=== PATIENT | female | born 1995 | race Hispanic/Latino ===

== ENCOUNTER 2020-11-04 09:01 | Emergency (ER) | payer OTHER, SELFPAY ==
[2020-11-04 09:34] VITALS: BP 116/76; PULSE 78; RESP 20; TEMP 36.6; O2SAT 99
--- NOTE | 2020-11-04 09:56 | ED.URI ---
HPI - URI/Sore Throat General Chief Complaint: Upper Respiratory Infection Stated Complaint: Headache,sore throat,fever,ear pain Time Seen by Provider: 11/04/20 09:55 Source: patient Mode of arrival: ambulatory Limitations: no limitations History of Present Illness HPI Narrative: Aleyda Gonzales is a 25 yo female with no prior medical history who [facility] with a fever since Saturday night, sore throat and ear congestion since Saturday, in general runny nose scratchy throat just not feeling well for the last 3 days. Has had a headache or ear pain that she rates as a 9 out of 10, has been using Tylenol and aspirin to try and control pain, fever Related Data Allergies Allergy/AdvReac Type Severity Reaction Status Date / Time No Known Allergies Allergy Verified 04/20/18 13:22 Review of Systems Review of Systems: Narrative: CONSTITUTIONAL: Denies fever, chills, sweats. EYES: Denies visual changes, redness, discharge. ENT: Has rhinorrhea, has congestion, has sore throat, bilateral otalgia. CARDIOVASCULAR: Denies chest pain, palpitations, edema. RESPIRATORY: Denies dyspnea, wheezing, mild cough GASTROINTESTINAL: Denies abdominal pain, nausea, vomiting, diarrhea. GENITOURINARY: Denies dysuria, hematuria, abnormal discharge SKIN: Denies rash or itching. NEUROLOGIC: Denies numbness, or focal weakness. PSYCHIATRIC: Denies anxiety or depression. PMFSH Past Medical History Medical History No acute medical problems Family History Family History (Updated 11/04/20 @ 10:06 by Kelly Dee CNP) Mother High cholesterol Social History Social History (Updated 11/04/20 @ 10:06 by Kelly Dee CNP) Smoking status: Never smoker Alcohol intake: current Gender identity (if verbalized by the patient): Female Comments At time of signature, I agree with nursing past medical, surgical, social and family history. There is no relevant family history pertinent to the presenting complaint. Exam Narrative: Exam Narrative: GENERAL: This is a well-nourished, well-developed patient, in moderate distress. Appears tired HEAD: normocephalic, atraumatic. EYES: Sclera clear/white. Vision is grossly intact. EARS: External ears normal, auditory canals erythema and without drainage, TMs normal without perforation. Hearing grossly intact. NOSE: External nose normal with nasal discharge, nares with redness, has rhinorrhea. THROAT: Mucous membranes moist, posterior pharynx erythema NECK: Neck supple, non-tender CARDIOVASCULAR: Regular rate and rhythm without murmurs, gallops, or rubs. RESPIRATORY: Clear to auscultation. Breath sounds equal bilaterally. No wheezes, rales, or rhonchi. GASTROINTESTINAL: Abdomen soft, non-tender, SKIN: warm, intact with no suspicious lesions or rash, good texture and turgor. NEURO: awake, alert, and oriented to person, place and time. There were no obvious focal neurologic abnormalities. Steady gait EXTREMITIES: Normal range of motion. BACK: Nontender without deformity Course Course Emergency Course: Patient has had symptoms since Saturday and fever started on Saturday night states that nothing is improved she has taken allergy medication and Tylenol or aspirin with improvement Throat swab was negative Strep swab was negative Is a longevity of symptoms and very symptoms, started on Z-Rhett, prednisone, codeine cough syrup, 600 mg ibuprofen Vital Signs Vital signs: Vital Signs Temperature 98 F 11/04/20 09:34 Pulse Rate 78 11/04/20 09:34 Respiratory Rate 20 11/04/20 09:34 Blood Pressure 116/76 11/04/20 09:34 Pulse Oximetry 99 11/04/20 09:34 Temperature 98 F 11/04/20 09:34 Pulse Rate 78 11/04/20 09:34 Respiratory Rate 20 11/04/20 09:34 Blood Pressure 116/76 11/04/20 09:34 Pulse Oximetry 99 11/04/20 09:34 MDM - URI/Sore Throat Differential Diagnosis Differential diagnosis: Likely otitis media, pharyngiti
== END 2020-11-04 10:22 | disposition home or self-care (01) ==
PROVIDERS: Emergency Provider Nurse Practitioner; PCP Family Medicine
DX: J02.9 Acute pharyngitis, unspecified (principal); H66.003 Acute suppurative otitis media without spontaneous rupture of ear drum, bilateral; R50.81 Fever presenting with conditions classified elsewhere
CPT/HCPCS: 87081; 87804; 87880; 99213; G0463

== ENCOUNTER 2021-04-20 17:45 | Emergency (ER) | payer OTHER, SELFPAY ==
[2021-04-20 17:55] VITALS: BP 122/73; PULSE 87; RESP 16; TEMP 36.3; O2SAT 100
--- NOTE | 2021-04-20 18:12 | ED.SKABFB ---
HPI - Skin/Abscess/Foreign Bdy General Chief complaint: Skin/Abscess/Foreign Body Stated complaint: rash Source: patient and RN notes reviewed Limitations: no limitations History of Present Illness HPI narrative: The patient, previously mostly healthy on minimal medications, presents with skin eruption. Patient states she has a shorter 1 day history of pink, itchy eruption that began on her face and now also involves her proximal extremities. Symptoms are mild, worse with scratching, unrelieved OTC Benadryl; no fever, URI?sinusitis, cough, wheeze, oral involvement. No new oral medications; she had a recent refill of her Depo control. Related Data Allergies Allergy/AdvReac Type Severity Reaction Status Date / Time No Known Allergies Allergy Verified 04/20/18 13:22 Review of Systems Review of Systems: General/Constitutional: No weight loss,fever Eyes: N0: Redness,discharge Ears/Nose/Throat: No: Epistaxis,ear discharge Respiratory: Denies: Hemoptysis Gastrointestinal: No Vomiting, Bleeding-rectal Skin: No Lumps, REPORTS eruption Neurologic: No Focal Weakness,Sz Hematologic: Denies: Petechiae/Purpura Psychiatric: No: Suicida ideationl All Other Systems: Reviewed and Negative PMFSH Past Medical History Medical History No acute medical problems Family History Family History (Updated 11/04/20 @ 10:06 by Kelly Dee CNP) Mother High cholesterol Social History Social History (Updated 11/04/20 @ 10:06 by Kelly Dee CNP) Smoking status: Never smoker Alcohol intake: current Gender identity (if verbalized by the patient): Female Comments At time of signature, agree with nursing past medical, surgical, social and family history. There is no relevant family history pertinent to the presenting complaint Exam Narrative: General Appearance: Well nourished Head: Normocephalic Skin: Warm, Dry ; scattered blanching polymorphic regular eruption on hairline and proximal extremities Eye: PERRLA, Conjunctiva clear Ear: External ear normal Nose: Normal nose, Nare clear Mouth/Throat: Normal appearing Neck Exam: Supple Respiratory: Airway patent, No respiratory distress, CTA Musculoskeletal: Moves all extremities, Non tender Neurological: A&O x3 Psychiatric: Normal mood, Normal affect Course Vital Signs Vital signs: Vital Signs Temperature 97.3 F L 04/20/21 17:55 Pulse Rate 87 04/20/21 17:55 Respiratory Rate 16 04/20/21 17:55 Blood Pressure 122/73 04/20/21 17:55 Pulse Oximetry 100 04/20/21 17:55 Temperature 97.3 F L 04/20/21 17:55 Pulse Rate 87 04/20/21 17:55 Respiratory Rate 16 04/20/21 17:55 Blood Pressure 122/73 04/20/21 17:55 Pulse Oximetry 100 04/20/21 17:55 Discharge Plan Discharge Clinical Impression: Urticaria, Pruritic condition Patient Disposition: Home, Self-Care Condition: Stable Instructions: Urticaria (ED) Additional Instructions: You may use OTC preparations like nighttime Benadryl, hydrocortisone cream for future recurrence Stop all make-up, facial preps; if not improved try elimination diet Keep photo log of area; return to PMD if worsens or persists Prescriptions: New prednisone 20 mg tablet 60 mg PO DAILY Qty: 15 RF: 0 loratadine [Claritin] 10 mg tablet 10 mg PO DAILY PRN (Reason: allergy symptoms) Qty: 14 RF: 0 Follow-up/Referrals: UNKNOWN,DOCTOR [Primary Care Provider] -
== END 2021-04-20 18:27 | disposition home or self-care (01) ==
PROVIDERS: Emergency Provider Emergency Medicine
DX: L50.9 Urticaria, unspecified (principal); L29.9 Pruritus, unspecified
CPT/HCPCS: 99213; G0463

== ENCOUNTER 2022-08-17 08:15 | Emergency (ER) | payer OTHER, SELFPAY ==
--- NOTE | ~2022-08-17 | US_ITS ---
EXAMINATION: US venous doppler [facility] DATE: 08/17/2022 12:59 INDICATION: Lower limb pain and swelling TECHNIQUE: Grayscale ultrasound images without and with compression and Doppler ultrasound images of the bilateral lower extremity veins were obtained. COMPARISON: None. FINDINGS: The visualized portions of right common femoral vein, profunda (deep) femoral vein, femoral vein, pop liteal vein, posterior tibial veins, peroneal veins, gastrocnemius vein and greater saphenous vein ou tflow are patent. The visualized portions of left common femoral vein, profunda femoral vein, femoral vein, popliteal v ein, posterior tibial veins, peroneal veins, gastrocnemius vein and greater saphenous vein outflow ar e patent. IMPRESSION: 1. No deep venous thrombosis in either lower limb. Reviewed, dictated and finalized at location A. [employer]
[2022-08-17 08:28] VITALS: BP 126/84; PULSE 79; RESP 16; TEMP 36.9; O2SAT 100
--- NOTE | 2022-08-17 11:20 | ED.EXTPRO ---
HPI - Extremity Problem General Chief complaint: Extremity Problem,Nontraumatic Stated complaint: bilateral leg pain Time Seen by Provider: 08/17/22 11:18 History of Present Illness HPI Narrative: Patient is a 27-year-old female who presents ER with concerns for DVT. She is on control. She noticed some pain in her right foot after stepping on it a couple days ago. She is also been developing bruising to the left medial thigh. She endorses calf cramping bilaterally. No known trauma that could have caused the bruising. Denies fevers or chills or sweats. No hemoptysis. No pain with deep breath. Related Data Allergies Allergy/AdvReac Type Severity Reaction Status Date / Time No Known Allergies Allergy Verified 08/17/22 11:58 Review of Systems Review of Systems: All systems reviewed & are unremarkable except as noted in HPI and below Constitutional: Constitutional: Denies chills, Denies fatigue and Denies fever(s) ENT: Denies nasal congestion and Denies sore throat Cardiovascular: Cardiovascular: Denies chest pain, Denies rapid heart rate and Denies radiating jaw, neck or arm pain Respiratory: Respiratory: Denies cough and Denies dyspnea Musculoskeletal: Musculoskeletal: Denies arthralgias, Denies joint swelling and Reports muscle cramps (Calf cramping) Integumentary/Breasts: Comments: Bruising to the lower extremities. PMFSH Past Medical History Medical History (Updated 08/17/22 @ 13:43 by Varinder Cruz MD) Anxiety Family History Family History (Updated 11/04/20 @ 10:06 by Kelly Dee, WEIGHT REDUCTION SPECIALIST) Mother High cholesterol Social History Social History (Updated 11/04/20 @ 10:06 by Kelly Dee, WEIGHT REDUCTION SPECIALIST) Smoking status: Never smoker Alcohol intake: current Gender identity (if verbalized by the patient): Female Exam Narrative: GENERAL: Well-appearing, well-nourished, and in no acute distress. HEAD: Normocephalic, atraumatic. CHEST: Clear to auscultation. No respiratory distress. HEART: Regular rate and rhythm. Normal peripheral pulses. EXTREMITIES: Normal range of motion. No edema. SKIN: Warm, dry, no rash. Bruising to left medial thigh as well as multiple old healed bruises that are yellowed that are smaller than eraser. NEURO: Alert and oriented x3. PSYCH: Normal mood and affect. Course Course Emergency Course: Patient resting comfortably. Informed of results. No evidence of DVT. Patient given reassurance. Discharge home. Vital Signs Vital signs: Vital Signs Temperature 98.5 F 08/17/22 08:28 Pulse Rate 79 08/17/22 08:28 Respiratory Rate 16 08/17/22 08:28 Blood Pressure 126/84 08/17/22 08:28 Pulse Oximetry 100 08/17/22 08:28 Oxygen Delivery Room Air 08/17/22 08:28 Temperature 98.8 F 08/17/22 11:49 Pulse Rate 77 08/17/22 11:49 Respiratory Rate 18 08/17/22 11:49 Blood Pressure 126/84 08/17/22 08:28 Pulse Oximetry 100 08/17/22 11:49 Oxygen Delivery Room Air 08/17/22 11:49 MDM - Extremity (Nontraumatic) Imaging Data Radiologist's impression: ITS Impressions Venous Doppler Study 08/17/22 13:02 IMPRESSION: 1. No deep venous thrombosis in either lower limb. Discharge Plan Discharge Clinical Impression: Superficial bruising of thigh Patient Disposition: Home, Self-Care Condition: Stable Instructions: Contusion in Adults (ED) Additional Instructions: Return to the ER if you have chest pain or shortness of breath, you cannot keep down food or water, you lose consciousness, you have additional concerns. The ultrasound of your legs was negative for DVT. Prescriptions: No Action prednisone 20 mg tablet 60 mg PO DAILY Qty: 15 0RF loratadine [Claritin] 10 mg tablet 10 mg PO DAILY PRN (Reason: allergy symptoms) Qty: 14 0RF Follow-up/Referrals: Antonino,MD Maldonado [Primary Care Provider] - 1 Week
[2022-08-17 11:49] VITALS: PULSE 77; RESP 18; TEMP 37.1; O2SAT 100
== END 2022-08-17 13:50 | disposition home or self-care (01) ==
PROVIDERS: Emergency Provider Emergency Medicine; PCP Family Medicine
DX: M79.81 Nontraumatic hematoma of soft tissue (principal); Z79.3 Long term (current) use of hormonal contraceptives
CPT/HCPCS: 93970; 99284

== ENCOUNTER 2024-03-31 17:49 | Emergency (ER) | payer OTHER, SELFPAY ==
--- NOTE | 2024-03-31 17:54 | ED.NAVMDI ---
HPI - Nausea/Vomiting/Diarrhea General Chief complaint: Dizziness Stated complaint: Dizziness/ Vomiting Time Seen by Provider: 03/31/24 17:50 Source: patient Mode of arrival: ambulatory Limitations: no limitations History of Present Illness HPI Narrative: Patient is a 28-year-old female who presents with episodes of face flushing, sweating, rapid heart rate and feeling lightheaded. Patient states initially started 2 months ago but has worsened since watching has been being removed by [employer]. Patient states she wakes up every morning at the same time and vomits. Patient states she feels like her mind is racing even when she is sleeping. Does report nightmares. Denies any thoughts of harming herself or others. Denies any chance she is . Related Data Allergies Allergy/AdvReac Type Severity Reaction Status Date / Time No Known Allergies Allergy Verified 03/31/24 18:10 Review of Systems Review of Systems: All systems reviewed & are unremarkable except as noted in HPI and below Constitutional: Constitutional: Denies body ache(s), Denies chills, Denies fatigue, Denies fever(s), Denies headache(s), Denies malaise and Denies weakness Eyes: Eyes: Denies blurry vision, Denies irritation and Denies loss of vision ENT: Denies otalgia, Denies headache(s), Denies nasal discharge, Denies sinus pain and Denies sore throat Cardiovascular: Cardiovascular: Denies chest pain, Denies irregular heart rhythm and Reports dyspnea Respiratory: Respiratory: Denies dyspnea Gastrointestinal: Gastrointestinal: Denies abdominal pain, Denies melena, Denies hematochezia, Denies diarrhea, Reports nausea and Reports vomiting Musculoskeletal: Musculoskeletal: Denies back pain, Denies myalgias and Denies arthralgias Integumentary/Breasts: Skin/Breast: Denies pruritus and Denies rash Neurologic: Reports dizziness, Denies headache(s), Denies loss of vision and Denies weakness Psychiatric: Psychiatric: Reports no additional psychiatric complaints Endocrine: Endocrine: Denies fatigue PMFSH Past Medical History Medical History Anxiety Family History Family History Mother High cholesterol Social History Social History Smoking status: Never smoker Alcohol intake: current Gender identity (if verbalized by the patient): Female Comments At time of signature, agree with nursing past medical, surgical, social and family history. There is no relevant family history pertinent to the presenting complaint. Exam Const: General: cooperative, healthy appearing, comfortable, no acute distress and well nourished Nutritional Appearance: well nourished Orientation/consciousness: patient oriented x3 Limitations: no limitations HENMT: Head: normal to inspection, normocephalic and atraumatic Ears: hearing grossly normal bilaterally and external ears normal Face/Nose/Sinus: Normal external nose present, normal facial exam and face symmetric Face and sinus: normal facial exam and face symmetric Mouth: Yes lip normal Eyes: General: appearance normal, both eyes and all related structures Alignment and Position: alignment normal and position normal Periorbital: periorbital findings normal Eyelids: eyelids normal Pupils: Equal, round and reactive pupils present EOM: EOMs intact bilaterally Neck: Neck: normal visual inspection, full ROM and supple Chest: Chest palpation & inspection: normal inspection of the chest Resp: Effort & Inspection: normal respiratory effort and able to speak in complete sentences Auscultation: clear to auscultation bilaterally Cardio: Rate: regular rate Rhythm: regular rhythm Heart sounds: S1 normal heart sound present and S2 normal heart sound present GI: Inspection: normal to inspection Skin: General skin exam: normal color and no rashes or
[2024-03-31 17:58] VITALS: BP 114/83; PULSE 70; RESP 16; TEMP 36.6; O2SAT 99
[2024-03-31 18:10] LABS: Glucose Point of Care 109 mg/dl (65-105)
== END 2024-03-31 19:01 | disposition home or self-care (01) ==
PROVIDERS: Emergency Provider Nurse Practitioner Family; PCP Family Medicine
DX: F41.9 Anxiety disorder, unspecified (principal); F43.11 Post-traumatic stress disorder, acute; X58.XXXA Exposure to other specified factors, initial encounter
CPT/HCPCS: 82948; 99213; G0463

== ENCOUNTER 2024-05-20 17:10 | Emergency (ER) | payer OTHER, SELFPAY ==
[2024-05-20 17:20] VITALS: BP 109/65; PULSE 75; RESP 16; TEMP 36.7; O2SAT 100
--- NOTE | 2024-05-20 17:25 | ED.FEMALEGU ---
HPI - Female Genitourinary General Chief complaint: Urogenital-Female Stated complaint: Possible UTI Time Seen by Provider: 05/20/24 17:28 Source: patient and RN notes reviewed Mode of arrival: ambulatory Limitations: no limitations History of Present Illness HPI Narrative: 29-year-old female presents with concern for vaginal irritation, urine frequency that started yesterday. Reports today she started having burning with urination. She reports some small white vaginal discharge. She reports that irritation is all the time, not just when urinating. She reports this started after she had intercourse. She would like to be tested for STDs MD elicited complaint: UTI Related Data Allergies Allergy/AdvReac Type Severity Reaction Status Date / Time No Known Allergies Allergy Verified 05/20/24 17:24 Review of Systems Review of Systems: CONSTITUTIONAL: Denies malaise, chills, sweats, or fever. CARDIOVASCULAR: Denies chest pain, palpitations, or edema. RESPIRATORY: Denies cough or dyspnea. GASTROINTESTINAL: Denies abdominal pain, nausea, vomiting, diarrhea GENITOURINARY: Reports dysuria, frequency, vaginal irritation small amount of white vaginal discharge. Denies flank pain or hematuria. SKIN: Denies rash or itching. MUSCULOSKELETAL: Denies back pain or myalgia. All systems reviewed & are unremarkable except as noted in HPI and below PMFSH Past Medical History Medical History Anxiety Family History Family History Mother High cholesterol Social History Social History Smoking status: Never smoker Alcohol intake: current Gender identity (if verbalized by the patient): Female Comments At time of signature, agree with nursing past medical, surgical, social and family history. There is no relevant family history pertinent to the presenting complaint Exam Narrative: GENERAL: Well-appearing, well-nourished, and in no acute distress. HEAD: Normocephalic. EYES: PERRLA, conjunctivae clear. NECK: Supple. No lymphadenopathy CHEST: Clear to auscultation. No respiratory distress. HEART: Regular rate and rhythm. SKIN: Warm, dry, no rash. NEURO: Alert and oriented x3. PSYCH: Normal mood and affect Course Course Emergency Course: Patient is aware of diagnosis, understands and agrees to treatment plan. Anticipatory guidance given. Patient agrees to follow-up as directed and is aware of reasons to seek care at the emergency department. Portions of this record may have been created with voice recognition software Level of Care: Express Care Visit Vital Signs Vital signs: Vital Signs Temperature 98.0 F 05/20/24 17:20 Pulse Rate 75 05/20/24 17:20 Respiratory Rate 16 05/20/24 17:20 Blood Pressure 109/65 05/20/24 17:20 Pulse Oximetry 100 05/20/24 17:20 Oxygen Delivery Room Air 05/20/24 17:20 Temperature 98.0 F 05/20/24 17:20 Pulse Rate 75 05/20/24 17:20 Respiratory Rate 16 05/20/24 17:20 Blood Pressure 109/65 05/20/24 17:20 Pulse Oximetry 100 05/20/24 17:20 Oxygen Delivery Room Air 05/20/24 17:20 Reviewed. MDM - Female Genitourinary MDM Narrative Medical decision making narrative: Exam findings and UA show no acute concerns or changes; patient is non-toxic appearing and is in no distress. Patient is appropriate for outpatient treatment and follow-up. Differential Diagnosis Differential diagnosis: Likely urinary tract infection and cystitis Critical Care Time Critical Care Time Critical Care Time: No Discharge Plan Discharge Clinical Impression: Vaginal itching Patient Disposition: Home, Self-Care Condition: Stable Instructions: Yeast Infection (ED) Additional Instructions: Take medication as prescribed for yeast infection. We will send a urine culture to the lab; if the culture identifies an organism that requires antibiotic, you will receive a phone call from an urgent care staff member and an appropriate antibiotic will be prescribed. -Also recommend: increase water intake. Tylenol/ibuprofen as needed for pain or fever -Follow-up with your primary care provider for urine recheck or seek ER visit if condition worsens with high fever, nausea, vomiting and severe back pain. You have been tested for potential gonorrhea, chlamydia, and trichomoniasis today. You will receive a phone call in 2-3 days with the results of today's testing, if anything is positive you will receive a phone call and appropriate treatment will be prescribed at that time. You may need to return for an injection. It is very important that you avoid unprotected intercourse during treatment and for 7 days AFTER TREATMENT is complete and until your partner(s) have been treated. Please encourage your partner(s) to seek testing and treatment. When you have been exposed to sexually transmitted infections, it is important that you seek comprehensive testing, since we do not provide testing for all sexually transmitted infections. Some infections can have no symptoms, but cause serious health problems. Contact your health care provider or report to the emergency department if: You have genital swelling or pain, or unusual bleeding. You have joint pain, rash, swollen lymph nodes or night sweats. You are severe abdominal pain. You have a fever. Symptoms do not go away or they get worse even after treatment. You have bleeding or pain during sex. Prescriptions: New fluconazole 150 mg tablet 150 mg PO Q48H 3 Days Qty: 2 0RF Rx Instructions: take one dose now, and a second dose if symptoms remain in 48 hours Follow-up/Referrals: Antonino,MD Yane [Primary Care Provider] - Time of Disposition: 17:36
[2024-05-20 17:31] LABS: EDUAAPPEAR Clear; EDUABILI Negative (Negative); EDUABLOOD Negative (Negative); EDUACOLOR1 Light/Pale; EDUAGLUCOSE Negative (Negative); EDUAKETONE Negative (Negative); EDUALEUKO Negative (Negative); EDUANITRATE Negative (Negative); EDUAPROTEIN Negative (Negative); EDUASPGRAVITY 1.015
[2024-05-20 20:55] LABS: Trichomonas Vag PCR NOT DETECTED (NOT DETECTE)
[2024-05-20 21:19] LABS: Chlamydia trachomatis NOT DETECTED (NOT DETECTE); Neisseria gonorrhoeae PCR NOT DETECTED (NOT DETECTE)
== END 2024-05-20 17:42 | disposition home or self-care (01) ==
PROVIDERS: Emergency Provider Nurse Practitioner; PCP Family Medicine
DX: N89.8 Other specified noninflammatory disorders of vagina (principal)
CPT/HCPCS: 81003; 87086; 87491; 87591; 87661; 99213; G0463

== ENCOUNTER 2024-09-01 09:31 | Emergency (ER) | payer OTHER, BC, SELFPAY ==
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
[2024-09-01 09:41] VITALS: BP 114/69; PULSE 85; RESP 16; TEMP 36.6; O2SAT 98
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
--- OUTSIDE RECORDS SUMMARY | 2024-09-01 10:24 | XMS_ITS | Encounter Summary ---
Author Organization [facility] Address [address] [place] [address] Care Team Providers Care Tool Rental Technician Name Role Phone Yusra Muñiz MD Primary Care Provider [phone] Encounter Details Date Type Department Care Team (Late st Contact Info) Description 08/31/2024 12:45 PM CDT Hospital Encounter [facility] [address] [place], [place] [id number] Yusra Muñiz [place] [address] [facility] [place] [address] Arrived Social History Tobacco Use Types Packs/Day Years Used Date Smoking Tobacco: Never Smokeless Tobacco: Never Alcohol Use Standard Drinks/Week Comments Not Currently 0 (1 standard drink = 0.6 oz pur e alcohol) Social PHQ-2 Answer Date Recorded Patient Health Questionnaire-2 Score 0 07/09/2023 Comments No Sex and Gender Information Value Date Recorded Sex Assigned at Not on file Legal Sex Female 4:57 PM CDT Gender Identity Not on file Sexual Orientation Not on file documented as of this encounter Plan of Treatment Not on file documented as of this encounter Procedures Procedure Name Priority Date/Time Associated Diagnosis Comments MG DIAG W FRANCISCO BILAT DIGI Routine 08/31/2024 3:00 PM CDT Abnormal mammogram Lump of right breast documented in this encounter Results * MG DIAG W FRANCISCO BILAT DIGI (08/31/2024 3:00 PM CDT) Anatomical Region Laterality Modality Breast Bilateral Mammography, Rad iographic Imaging 08/31/2024 1:52 PM CDT Impressions 08/31/2024 1:54 PM CDT =====IMPRESSION:===== No mammographic evidence of malignancy. ASSESSMENT: ACR BI-RADS 2 - BENIGN FINDING(S) Recommendation: 1: Routine Screening Bilateral COMMENTS: Ordered By: YUSRA MUÑIZ Interpreted By: Jose Cordero, 08/31/2024 1:52 PM Narrative 08/31/2024 1:54 PM CDT [facility] [address] [place] [address] EXAMINATION: Digital bilateral diagnostic mammogram with 3-D tomography EXAM DATE/TIME: 08/31/2024 12:46 PM REASON FOR EXAM: abnormal mammogram, right breast lump . No palpable lumps at the time of this exam. Bilateral breast heaviness. Bilateral intermittent lumps. Patient states had benign lump removed from the right breast at age 18. Breast carcinoma in maternal aunt at age 48 COMPARISON: Baseline TECHNIQUE: Digital diagnostic mammography of both breasts was performed in addition to 3-D Tomosynthesis technique. This study was read with the assistance of a computer-aided detection system. TISSUE DENSITY: The breasts are heterogeneously dense, which may obscure small masses. Findings: No focal asymmetry, dominant mass lesion, area of skin thickening, or cluster of suspicious appearing calcifications in either breast to suggest malignancy. Incidental note made of ill-defined metallic density in the right axilla. 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 [place] [address] PCP - General FAMILY PRACTICE 04/19/22 documented as of this encounter
--- OUTSIDE RECORDS SUMMARY | 2024-09-01 10:24 | XMS_ITS | Clinical Summary ---
Author Organization [facility] Address [address] [place] [address] Care Team Providers Care Cafe Or Restaurant Manager Name Role Phone Yusra Muñiz MD Primary Care Provider [phone] Allergies No known active allergies Medications fluticasone propionate (FLONASE) 50 MCG/ACT nasal spray 1 spray by Nasal route daily. Active naproxen (NAPROSYN) 500 MG tabletIndication s:Acute bilateral thoracic back pain Take 1 tablet (500 mg total) by mouth 2 (two) times daily with meals. 60 tablet 4 Active Additional Information Patient not taking.Reported on 05/25/2024 fluconazole (DIFLUCAN) 150 MG tablet TAKE 1 TABLET BY MOUTH AND THEN TAKE A SECOND DOSE AFTER 48 HOURS IF SYMPTOMS REMAIN 4 Active amitriptyline (ELAVIL) 25 MG tabletIndication s:Chronic tension-type headache, not intractable Take 1 tablet (25 mg total) by mouth nightly at bedtime. 30 tablet 2 4 Active Active Problems Problem Noted Date Diagnosed Date Iron deficiency anemia 04/27/2022 Menorrhagia 02/08/2022 Dysuria 12/27/2021 Epigastric pain 12/27/2021 Fatigue, unspecified type 12/27/2021 Acute vaginitis 08/17/2020 Pelvic and perineal pain 08/17/2020 Resolved Problems Problem Noted Date Diagnosed Date Resolved Date Blurry vision 07/01/2021 12/27/2021 Acute non intractable tension-type headache 07/01/2021 12/27/2021 Acute conjunctivitis of both eyes, unspecified acute conjunctivitis type 07/01/20212 Health care maintenance 04/25/2021 11/0 01/2021 Screening for malignant neoplasm of cervix 05/13/2020 10/22/2022 Encounters Date Type Department Care Team Description 08/31/2024 12:45 PM CDT Hospital Encounter [facility] [address] [place] [address] Yusra Muñiz MD Arrived 08/31/2024 Travel 08/19/2024 Orders Only [facility] [address] [phone] Yusra Muñiz MD 08/18/2024 MyChart Message Enc [facility] [address] [phone] Yusra Muñiz MD Urgent 08/18/2024 Telephone [facility] [address] [phone] Yusra Muñiz MD Mammography Order 07/26/2024 Scan [employer] INFO SRVCS Scanned, [facility] 06/23/2024 12:17 PM WEB APPLICATIONS ARCHITECT - 06/23/2024 11:59 PM WEB APPLICATIONS ARCHITECT Hospital Encounter [facility] [address] [place] [address] Yusra Muñiz MD Discharge Disposition: Home or Self Care (Routine Discharge) 06/23/2024 9:00 AM WEB APPLICATIONS ARCHITECT Laboratory Only [facility] [address] [phone] Yusra Muñiz MD 06/23/2024 Travel 06/22/2024 Telephone [facility] [address] [phone] Yusra Muñiz MD Information from Last 3 Months Immunizations Name Administration Dates Next Due Attenuvax Sc 2000,02/22/1995 Dtp (Generic) 04/13/2005, 8,08/17/1997,10/22,1994,1994,1994 HPV2 (Cervarix) 11/26/2007,05/28/2007 HPV4 (Gardasil) 07/29/2007 Hepatitis A (Havrix [address]) 01/28/2018 Hepatitis B 12/23/2008,07/01/2007,05/28/2007 Influenza Adult (Generic) 05/12/2018 MMR (MMRII) 07/01/2007,05/28/2007 Meningococcal (Generic) 05/28/2007 PFIZER COVID-19 (ORIGINAL FO RMULATION, PURPLE CAP) mRNA, LNP-S, PF, 30 MCG/0.3 ML DOSE 10/03/2020,09/12/2020 Polio IPV (Ipol) 03/04/2009 Polio Opv (Generic) 11/19/1997, 8,1994,10/08,1994 Td (TDVAX) 05/28/2007,04/13/2005 Tdap (Generic) 05/28/2007 Family History Medical History Relation Comments Hyperlipidemia Father Cancer Maternal Aunt 1 Breast Cancer Maternal Aunt 2 Hyperlipidemia Mother Relation Status Comments Father Alive Maternal Aunt 1 Maternal Aunt 2 Mother Alive Social History Tobacco Use Types Packs/Day Years Used Date Smoking Tobacco: Never Smokeless Tobacco: Never Tobacco Cessation:Counseling Given: No Alcohol Use Standard Drinks/Week Comments Not Currently 0 (1 standard drink = 0.6 oz pur e alcohol) Social PHQ-2 Answer Date Recorded Patient Health Questionnaire-2 Score 0 07/09/2023 Comments No Sex and Gender Information Value Date Recorded Sex Assigned at Not on file Legal Sex Female 4:57 PM CDT Gender Identity Not on file Sexual Orientation Not on file Last Filed Vital Signs Vital Sign Reading Time Taken Comments Blood Pressure 103/65 05/25/2024 10:34 AM WEB APPLICATIONS ARCHITECT Pulse 65 05/25/2024 10:34 AM WEB APPLICATIONS ARCHITECT Temperature 36.3 C (97.3 F) 05/25/2024 10:34 AM WEB APPLICATIONS ARCHITECT Respiratory Rate 14 05/25/2024 10:34 AM WEB APPLICATIONS ARCHITECT Oxygen Saturation 94% 05/25/2024 10:34 AM WEB APPLICATIONS ARCHITECT Inhaled Oxygen Concentration - - Weight 70.8 kg (156 lb) 05/25/2024 10:34 AM WEB APPLICATIONS ARCHITECT Height 170.2 cm (5' 7 ) 05/25/2024 10:34 AM WEB APPLICATIONS ARCHITECT Body Mass Index 24.43 05/25/2024 10:34 AM WEB APPLICATIONS ARCHITECT Plan of Treatment Health Maintenance Due Date Last Done Comments DTaP, Tdap and Td Vaccines (10 - Td or Tdap) 05/28/2017 05/28/2007, 05/28/2007, 04/13/2005, Additional history exists Annual Physical 04/25/2022 04/25/2021 COVID-19 Vaccine ( season) 2024 10/03/2020, 09/12/2020 Influenza Adult (#1) 2024 05/12/2018 Cervical Cancer Screening Pap with HPV Testing (Age 30 to 64) Every 5 Years 2024 05/13/2020 PHQ-2 (Physician [facility]) 06/24/2024 07/09/2023 Cervical Cancer Screening Pap Smear (Age 30 to 64) Every 3 Years 06/05/2025 06/05/2022 Cervical Cancer Screening with HPV 06/05/2025 Meningococcal Vaccine Aged Out 05/28/2007 No lucille yumiko eligible based on patient's age to complete this topic HPV Vaccines Completed 11/26/2007, 10/2007, 05/28/2007 Hepatitis B Vaccines Completed 12/23/2008, 07/01/2007, 05/28/2007 Hepatitis C Completed 05/25/2024 Meningococcal B Vaccine Aged Out No l onger eligible based on patient's age to complete this topic Pneumococcal Vaccine: Pediatrics (0 to 5 Years) and At-Risk Patients (6 to 64 Years) Aged Out No longer eligible based on patient's age to complete this topic RSV Immunizations Under 20 Months Aged Out No longer eligible based on patient's age to complete this topic Procedures Procedure Name Priority Date/Time Associated Diagnosis Comments MG PHOEBE GUO DIGI Routine 08/31/2024 3:00 PM CDT Abnormal mammogram Lump of right breast COLLECTION VENOUS BLOOD VENIPUNCTURE Routine 06/23/2024 9:01 AM WEB APPLICATIONS ARCHITECT Vaginal discharge Unprotected sex HIV 1 ANTIGEN(S), WITH HIV-1 AND HIV-2 ANTIBODIES Routine 06/23/2024 8:55 AM WEB APPLICATIONS ARCHITECT Vaginal discharge Unprotected sex HEPATITIS C ANTIBODY Routine 05/25/2024 10:51 AM WEB APPLICATIONS ARCHITECT Vaginal discharge Unprotected sex CYTOPATH CERV/VAG THIN LAYER Routine 06/05/2022 4:38 AM WEB APPLICATIONS ARCHITECT OUTSIDE CYTOPATH CERV/VAG INTERPRET (PAP) 05/13/2020 from Last 3 Months or Most Recently Relevant to Health Maintenance Results * MG DIAG W FRANCISCO BILAT [...] 1:52 PM Narrative 08/31/2024 1:54 PM CDT [facility] [address] [place] [address] EXAMINATION: Digital bilateral diagnostic mammogram with 3-D [...] ill-defined metallic density in the right axilla. us Yusra Muñiz MD MAMMO Final Result * HIV 1 ANTIGEN(S), WITH HIV-1 AND HIV-2 ANTIBODIES (06/23/2024 8:55 AM WEB APPLICATIONS ARCHITECT) Pathologist [facility] HIV 1/2 AB+ HIV1 P24 AG NON-REACTI VE NON-REACTI VE 06/23/2024 4:15 PM WEB APPLICATIONS ARCHITECT [facility] 06/23/2024 8:55 AM WEB APPLICATIONS ARCHITECT us Yusra Muñiz MD LABORATORY Final Result [facility] [address] [place] [address], [place] [phone] * HEPATITIS C AB ([facility] ONLY) (05/25/2024 10:51 AM WEB APPLICATIONS ARCHITECT) Pathologist [facility] HEPATITIS C AB NON-REACTI VE NON-REACTI VE 05/25/2024 8:25 PM WEB APPLICATIONS ARCHITECT [facility] 05/25/2024 10:5 1 AM WEB APPLICATIONS ARCHITECT us Yusra Muñiz MD LABORATORY Final Result [facility] [address] [place] [address], [place] [phone] * Cytopath Cerv/Vag Thin Layer (06/05/2022 4:38 AM WEB APPLICATIONS ARCHITECT) Pathologist [facility] THIN PREP PAP [address] [phone] Department of Pathology Pathology Report CERVICAL/VAGINAL PAP SMEAR REPORT Name: GONZALES, ALEYDA Age: 10 1995 (Age: 27) Location: [facility] Sex: F Collected Date: 06/05/2022 [facility] #: [id number] Date Received: 06/07/2022 Date Reported: 06/11/2022 Provider: YUSRA MUÑIZ MD INTERPRETATION CERVICAL/ENDOCERVI CHI: SATISFACTORY FOR EVALUATION. ENDOCERVICAL/TRANS FORMATION ZONE COMPONENT PRESENT. NEGATIVE FOR INTRAEPITHELIAL LESION OR MALIGNANCY. Electronically Signed Out By GENIE Bryant (ASCP) CLINICAL HISTORY Z12.4 SCREENING PAP TEST ThinPrep Pap Test with HR HPV testing in patient > 21 years with ASC-US diagnosis. Date of Last Menstrual Period: 06/04/22 Menstrual Status: Regular SPECIMEN SUBMITTED CERVICAL/ENDOCERVI CHI Specimen Received:1 Thin Prep Vial, Image Assisted Pap (SMD) Please note: The Pap smear is not a diagnostic test. It is a screening test. Negative results on combined screening (Pap test and HPV-DNA) have a high negative predictive value (99.1-100 percent) for cervical cancer. The pap test is not effective in detecting cervical adenocarcinoma. [facility] 06/05/2022 4:38 AM WEB APPLICATIONS ARCHITECT 06/07/2022 4:38 AM WEB APPLICATIONS ARCHITECT Comment:CERVICAL/ENDOCERVICA L Yusra Muñiz MD PATHOLOGY/CYTOLOGY ORDERABLES Final Result [facility] [address] [place] [address], * PAP SMEAR WITH HPV (05/13/2020) 05/13/2020 us [facility] Scanned SCANNING Final Resu lt from Last 3 Months or Most Recently Relevant to Health Maintenance Insurance [facility] Care Teams Cafe Or Restaurant Manager Relationship Specialty Start Date End Date Yusra Muñiz [place] [address] [address] [place] [id number] PCP - General FAMILY PRACTICE 04/19/22
--- OUTSIDE RECORDS SUMMARY | 2024-09-01 10:24 | XMS_ITS | Data Portability ---
Author Organization [employer] , [facility] Address [address] [place] [address] Care Team Providers Care Orthotic Practitioner Name Role Phone [facility] Credit Rating Checker Assessment No assessment recorded. Plan of Treatment Reminders Order Date Submit Date Provider Last Modified By Organization Details Last Modified Time Details Appointments None recorded. Lab TSH + free T4, serum 2023 024 [employer], [address] [place], [address], 4 12:31:26 lh + FSH, serum 2023 024 [employer], [address] [place], [address], 4 12:31:28 estradiol, serum 2023 024 [facility], [address] [place], [address], 4 11:02:40 Referral None recorded. Procedures None recorded. Surgeries None recorded. Imaging US, transvagina l 2023 024 HUI Not available 02:19:41 MAMMO, diagnostic, digital, bilateral - Bilateral breast pain. small lump size of quarter at 3 o'clock on right breast. Hx of lumpectomy on right breast. [address] (Central Scheduling), [address] [place], [address], 4 12:23:13 US, breast - Bilateral breast pain. small lump size of quarter at 3 o'clock on right breast. Hx of lumpectomy on right breast. 2023 024 lisset r3 [facility] (Central Scheduling), [address], [place], [address], 4 15:45:28 Medication Orders None recorded. Patient TargetsNo targets recorded. Patient InstructionsNo instructions recorded. Reason for Referral None Reported. Results Created Date Observation Date Name Description Value Unit Range Abnormal Flag Note LastModifiedBy Organization Detail LastModifiedTime 05/01/20 24 05/01/2024 ESTRA DIOL estradiol 138 pg/mL normal Refer ence Range Folli cular Phase : 19-14 4 Mid-C ycle: 64-35 7 Lutea l Phase : 56-21 4 Postm enopa usal: < or = 31 Refer ence range estab lishe d on post- puber gage patie nt popul ation . No pre-p ubert al refer ence range estab lishe d using this assay . For any patie nts for whom low Estra diol level s are antic ipate d (e.g. males , pre-p ubert al child ayo and hypog onada l/pos t-men opaus al femal es), the [facility] Estra diol, Ultra sensi tive, LCMSM S assay is recom tessa d (orde r code [id number] ). Pleas e note: patie nts being treat ed with the drug fulve stran t (Fasl odex( R)) have demon strat ed signi fican t inter feren ce in immun oassa y metho ds for estra diol measu remen t. The cross react ivity could lead to false ly eleva dominga estra diol test resul ts leadi ng to an inapp ropri ate clini libertad asses sment of estro gen statu s. [facility] order code [id number] -Estr adiol , Ultra sensi tive LC/MS /MS demon strat es negli gible cross react ivity with eunice humphries. NO COLLE CTION DATE RECEI FRANK. WE HAVE USED THE DATE THE SPECI MEN WAS RECEI FRANK BY THIS LABOR ATORY THE COLLE CTION DATE. IF THIS IS INCOR RECT, PLEAS E CONTA CT CLIEN T SERVI LORENZA. PHONE NUMBE R: [phone] Not Available [facility] [address] [place], [address], 05/01/2024 11:02:40 05/13/20 24 05/12/2024 ANTI- MULLE JUANCARLOS HORMO NE ([facility]) , FEMAL E anti-mulleri an hormone (amh), female 1.68 NG/mL 0.69-1 3.39 NO COLLE CTION DATE RECEI FRANK. WE HAVE USED THE DATE THE SPECI MEN WAS RECEI FRANK BY THIS LABOR ATORY THE COLLE CTION DATE. IF THIS IS INCOR RECT, PLEAS E CONTA CT CLIEN T SERVI LORENZA. PHONE NUMBE R: [phone] Not Available [facility] [address] [place], [address], 05/13/2024 00:43:00 04/30/20 24 05/01/2024 TSH W/ T4, FREE TSH 1.08 mIU/L 0.55 - 4.78 normal Refer ence Range Femal e aged 18-Ad ult: 0.55- 4.78 Pregn xi Refer ence Range s First Trime ster 0.26- 2.66 Secon d Trime ster 0.55- 2.73 Third Trime ster 0.43- 2.91 Not Available [facility] [place], [address], 05/01/2024 12:31:26 04/30/20 24 05/01/2024 TSH W/ T4, FREE T4, free 1.15 NG/dL 0.89 - 1.76 normal Not Available [place], [address], 05/01/2024 12:31:26 04/30/20 24 05/01/2024 FSH AND LH FSH 14.5 mIU/m L Refer ence Range s are for femal es aged 18 years - Adult Anahy l Menst ruati ng Femal e: Folli cular phase : 2.5-1 0.2 mIU/m L Mid-C ycle Peak: 3.4-3 3.4 mIU/m L Lutea l phase : 1.5-9 .1 mIU/m L Pregn ant: <0.3 mIU/m L Post- menop ausal : 23.0- 116.6 mIU/m L Not Available [employer] [address] [place], [address], 05/01/2024 12:31:28 04/30/20 24 05/01/2024 FSH AND LH LH 22.63 U/L Refer ence Range s are for femal es aged 18 years - Adult Anahy l Menst ruati ng Femal e: Folli cular phase : 1.9-1 2.5 mIU/m L Mid-C ycle Peak: 8.7-7 6.3 mIU/m L Lutea l phase : 0.5-1 6.9 mIU/m L Pregn ant: <0.1- 1.5 mIU/m L Post- menop ausal : 15.9- 54.0 mIU/m L Contr acept anthony: 0.7-5 .6 mIU/m L Not Available [employer] [address] [place], [address], 05/01/2024 12:31:28 05/08/20 24 05/09/2024 COMPR EHENS MARI METAB OLIC PANEL sodium 141 mmol/ L 136 - 145 normal Not Available [place], [address], 05/09/2024 11:05:50 05/08/20 24 05/09/2024 COMPR EHENS MARI METAB OLIC PANEL potassium 3.3 mmol/ L 3.5 - 5.1 low Not Available [place], [address], 05/09/2024 11:05:50 05/08/20 24 05/09/2024 COMPR EHENS MARI METAB OLIC PANEL chloride 103 mmol/ L 98 - 107 normal Not Available [address], [address], 05/09/2024 11:05:50 05/08/20 24 05/09/2024 COMPR EHENS MARI METAB OLIC PANEL glucose 82 mg/dL 74 - 106 normal Not Available [address], [address], 05/09/2024 11:05:50 05/08/20 24 05/09/2024 COMPR EHENS MARI METAB OLIC PANEL carbon dioxide 30 mmol/ L 20 - 32 normal Not Available [address], [address], 05/09/2024 11:05:50 05/08/20 24 05/09/2024 COMPR EHENS MARI METAB OLIC PANEL calcium 9.1 mg/dL 8.5 - 10.1 normal Not Available [address], [address], 05/09/2024 11:05:50 05/08/20 24 05/09/2024 COMPR EHENS MARI METAB OLIC PANEL creatinine 0.54 mg/dL 0.60 - 1.00 low Not Available [address], [address], 05/09/2024 11:05:50 05/08/20 24 05/09/2024 COMPR EHENS MARI METAB OLIC PANEL eGFR 127 mL/mi n/1.7 3m2 >60 normal The eGFR is based on the CKD-E PI 2020 livierat johnson. To calcu late the new eGFR from a previ ous Creat inine or Cysta tin C resul t, go to https ://[facility]/pr sachin ornelasal s/kdo qi/gf r_cal culat or Not Available [address], [address], 05/09/2024 11:05:50 05/08/20 24 05/09/2024 COMPR EHENS MARI METAB OLIC PANEL AST 9 U/L 15 - 37 low Not Available [address], [address], 05/09/2024 11:05:50 05/08/20 24 05/09/2024 COMPR EHENS MARI METAB OLIC PANEL ALT 19 U/L 14 - 59 normal Not Available [address], [address], 05/09/2024 11:05:50 05/08/20 24 05/09/2024 COMPR EHENS MARI METAB OLIC PANEL alk phos 60 U/L 46 - 116 normal Not Available [address], [address], 05/09/2024 11:05:50 05/08/20 24 05/09/2024 COMPR EHENS MARI METAB OLIC PANEL albumin 4.0 g/dL 3.4 - 5.0 normal Not Available [address], [address], 05/09/2024 11:05:50 05/08/20 24 05/09/2024 COMPR EHENS MARI METAB OLIC PANEL protein, total 7.7 g/dL 6.4 - 8.2 normal Not Available [address], [address], 05/09/2024 11:05:50 05/08/20 24 05/09/2024 COMPR EHENS MARI METAB OLIC PANEL bilirubin, total 0.4 mg/dL 0.2 - 1.0 normal Not Available [address], [address], 05/09/2024 11:05:50 05/08/20 24 05/09/2024 COMPR EHENS MARI METAB OLIC PANEL urea nitrogen (BUN) 10 mg/dL 7 - 18 normal Not Available [facility] [address], [place], [address], 05/09/2024 11:05:50 05/08/2005/09/2024 CBC (INCL UDES DIFF/ PLT) WBC 7.3 thous and/u L 4.0 - 9.8 normal Not Available [address], [address], 05/09/2024 12:49:08 05/08/20 24 05/09/2024 CBC (INCL UDES DIFF/ PLT) RBC 4.6 max on/uL 3.9 - 4.9 normal Not Available [address], [address], 05/09/2024 12:49:08 05/08/2005/09/2024 CBC (INCL UDES DIFF/ PLT) hemoglobin 13.4 g/dL 11.8 - 14.8 normal Not Available [address], [address], 05/09/2024 12:49:08 05/08/2005/09/2024 CBC (INCL UDES DIFF/ PLT) hematocrit 40.2 % 35.5 - 44.0 normal Not Available [address], [address], 05/09/2024 12:49:08 05/08/20 24 05/09/2024 CBC (INCL UDES DIFF/ PLT) MCV 88.2 fL 82.0 - 99.0 normal Not Available [address], [address], 05/09/2024 12:49:08 05/08/2005/09/2024 CBC (INCL UDES DIFF/ PLT) MCH 29.4 pg 27.2 - 32.6 normal Not Available [address], [address], 05/09/2024 12:49:08 05/08/20 24 05/09/2024 CBC (INCL UDES DIFF/ PLT) MCHC 33.3 g/dL 31.5 - 35.5 normal Not Available [address], [address], 05/09/2024 12:49:08 05/08/2005/09/2024 CBC (INCL UDES DIFF/ PLT) RDW-CV 12.7 % 11.5 - 14.5 normal Not Available [address], [address], 05/09/2024 12:49:08 05/08/2005/09/2024 CBC (INCL UDES DIFF/ PLT) platelet 319 thous and/u L 140 - 350 normal Not Available [address], [address], 05/09/2024 12:49:08 05/08/2005/09/2024 CBC (INCL UDES DIFF/ PLT) MPV 10.8 fL 9.3 - 12.4 normal Not Available [address], [address], 05/09/2024 12:49:08 05/08/2005/09/2024 CBC (INCL UDES DIFF/ PLT) absolute neutrophil 3.88 thous and/u L 1.90 - 7.00 normal Not Available [address], [address], 05/09/2024 12:49:08 05/08/2005/09/2024 CBC (INCL UDES DIFF/ PLT) absolute lymphocyte 2.63 thous and/u L 0.70 - 4.50 normal Not Available [address], [address], 05/09/2024 12:49:08 05/08/20 24 05/09/2024 CBC (INCL UDES DIFF/ PLT) absolute monocyte 0.63 thous and/u L 0.10 - 1.30 normal Not Available [address], [address], 05/09/2024 12:49:08 05/08/20 24 05/09/2024 CBC (INCL UDES DIFF/ PLT) absolute eosinophil 0.08 thous and/u L <0.70 normal Not Available [address], [address], 05/09/2024 12:49:08 05/08/20 24 05/09/2024 CBC (INCL UDES DIFF/ PLT) absolute basophil 0.03 thous and/u L <0.20 normal Not Available [address], [address], 05/09/2024 12:49:08 05/08/20 24 05/09/2024 CBC (INCL UDES DIFF/ PLT) absolute immature granulocyte 0.01 thous and/u L <0.03 normal Not Available [address], [address], 05/09/2024 12:49:08 07/12/19 24 07/12/2023 US, trans vagin al No observ ation record ed. [email or web address] [facility] [address], [place], [address], 07/13/2023 02:19:42 Result Notes None recorded. Problems Name Problem SNOMED Code Status Onset Date Resolution Date Notes Provider Name and Address Organization Details Recorded Time Pelvic and perineal pain 223695130 Completed 202012/29/2021 Pelvic and perineal pain; Progress: Stable Added By: Angelique Escalera Add to Current Problems: YES ProblemSt atus: Current Karol Rojas CNM [address] [place], [address], [facility] IV 2 07:10:00 Acute vaginiti s [id number] Completed 202012/29/2021 Acute vaginitis ; Progress: Stable Added By: Tawnya Sawyer Add to Current Problems: YES ProblemSt atus: Current Karol Rojas CNM [address] [place], [address], [employer] [facility] 2 07:10:00 Dysuria [id number] Completed 202012/29/2021 Dysuria; Progress: Stable Added By: Angelique Escalera Add to Current Problems: YES ProblemSt atus: Current Karol Rojas, GIULIA [address] [place], [address], [facility] 2 07:10:00 Clinical finding Completed 201912/29/2021 Encounter for surveilla nce of injectabl e contracep tive; Progress: Stable Added By: Priya Torre Add to Current Problems: YES ProblemSt atus: Current Karol Rojas, GIULIA [address] [place], [address], [facility] 2 07:10:00 Sampling of vagina for Papanico laou smear Completed 201912/29/2021 Encounter for gynecolog ical examinati on (general) (routine) without abnormal findings; Progress: Stable Added By: Azul Chopra Add to Current Problems: YES ProblemSt atus: Current Karol Rojas, GIULIA [address] [place], [address], [facility] 2 07:10:00 Screenin g for malignan t neoplasm of cervix Completed 201912/29/2021 Encounter for screening for malignant neoplasm of cervix; Progress: Stable Added By: Azul Chopra Add to Current Problems: YES ProblemSt atus: Current Karol Rojas, GIULIA [address] [place], [address], [employer] [facility] 2 07:10:00 Menorrha yana [id number] Completed 202107/03/2023 Sarah klein, [employer] [facility] IV 4 11:10:31 Problem Notes None recorded. Procedures Surgical History Date Name Laterality Status Provider Name and Address Organization Details Recorded Time 08/23/19 24 laparoscopy completed Kathya Elias MD [address] [place], [address], [facility] IV 09/10/2023 13:16:13 08/23/19 24 Hysteroscopy ablation completed Kathya Elias MD [address] [place], [address], [facility] IV 09/10/2023 13:16:42 04/24/20 23 Date of Last Pap Smear completed Kelvin Millan [facility] [employer] IV 04/30/2024 15:32:37 07/12/19 23 Paragard IUD Removal completed Karol Rojas CNM [address] [place], [address], [facility] [employer] [facility] IV 07/12/2022 17:59:17 08/24/19 22 IUD Insertion completed ROBBIE Grant [address] [place], [address], [facility] [employer] [facility] IV 08/23/2021 16:08:38 biopsy of breast completed Yeny Anderson [facility] [employer] IV 06/09/2021 23:23:49 Imaging Results Imaging Date Name Status LastModified by Organization Details LastModified Time 07/12/2023 US, transvaginal completed [email or web address] [address], [place], [address], 07/13/2023 02:19:42 Procedure Notes None recorded. Medical Equipment None Reported. Allergies No known drug allergies Medications Name Sig Start Date Stop Date Status Note LastModified by Organization Details LastModified Time venlafaxi ne ER 75 mg capsule,e xtended release 24 hr TAKE 1 CAPSULE BY MOUTH EVERY DAY WITH FOOD 07/03 completed Not Available Not Available Not Available paroxetin e 10 mg tablet 01/02 completed Not Available Not Available Not Available cetirizin e 10 mg tablet TAKE 1 TABLET BY MOUTH EVERY DAY 07/03 completed Not Available Not Available Not Available azithromy viki 250 mg tablet 06/12 completed Not Available Not Available Not Available ibuprofen 800 mg tablet Take 1 tablet every 8 hours by oral route as needed. 07/03 completed Not Available Not Available Not Available fluconazo le 150 mg tablet 04/24 completed Not Available Not Available Not Available benzonata te 200 mg capsule 01/02 completed Not Available Not Available Not Available hydrocodo ne 5 mg-acetam inophen 325 mg tablet TAKE 1 TABLET BY MOUTH EVERY 6 HOURS NEEDED 09/09 completed Not Available Not Available Not Available metronida zole 0.75 % (37.5 mg/5 gram) vaginal gel PLACE VAGINALL Y EVERY NIGHT AT BEDTIME FOR 5 DAYS 04/24 completed Not Available Not Available Not Available prednison e 20 mg tablet TAKE 2 TABLETS BY MOUTH IN THE MORNING FOR 5 DAYS 04/30 completed Not Available Not Available Not Available metronida zole 500 mg tablet take 1 tablet (500 mg) by oral route 2 times per day. Avoid any alcohol use while taking this medicati on. 08/23 completed Not Available Not Available Not Available sulfameth oxazole 800 mg-trimet hoprim 160 mg tablet take 1 tablet by oral route twice daily for three days 01/02 completed Not Available Not Available Not Available amoxicill in 875 mg tablet 09/09 completed Not Available Not Available Not Available magnesium oxide 400 mg (241.3 mg magnesium ) tablet 07/03 completed Not Available Not Available Not Available ropinirol e 0.25 mg tablet TAKE 1 TABLET BY MOUTH 1 HOUR BEFORE BEDTIME CAN INCREASE TO 2 TABLETS AFTER 2 DAYS IF TOLERATI NG WELL 07/03 completed Not Available Not Available Not Available meclizine 25 mg tablet 07/03 completed Not Available Not Available Not Available benzonata te 100 mg capsule 06/12 completed Not Available Not Available Not Available venlafaxi ne 37.5 mg tablet TAKE 1 TABLET BY MOUTH EVERY DAY WITH FOOD FOR 7 DAYS 07/03 completed Not Available Not Available Not Available lotepredn ol etabonate 0.5 % eye drops,cabrera pension SHAKE LIQUID AND INSTILL 1 DROP IN LEFT EYE FOUR TIMES DAILY 04/30 completed Not Available Not Available Not Available ibuprofen 600 mg tablet 01/02 completed Not Available Not Available Not Available albuterol sulfate HFA 90 mcg/actua tion aerosol inhaler INHALE 2 PUFFS BY MOUTH EVERY 6 HOURS NEEDED FOR WHEEZING OR SHORTNES S OF BREATH 01/02 completed Not Available Not Available Not Available hydroxyzi ne HCl 10 mg tablet TAKE 1 TABLET BY MOUTH THREE TIMES DAILY NEEDED FOR ANXIETY 04/30 completed Not Available Not Available Not Available fluticaso ne propionat e 50 mcg/actua tion nasal spray,cabrera pension SHAKE LIQUID AND USE 1 SPRAY IN EACH NOSTRIL DAILY 09/09 completed Not Available Not Available Not Available medroxypr ogesteron e 150 mg/mL intramusc ular suspensio n inject 1 millilit er (150 mg) by intramus cular route every 3 months 08/23 completed medroxyP ROGESTER one 150 mg/mL intramus cular Suspensi on RxNorm: [id number] Allow Substitu tion: True Refill Denied: No Edited by: Annalisa Colón) on 01/17/20 21 Stopped by: Annalisa Colón) on Not Available Not Available Not Available ParaGard T 380A 380 square mm intrauter ine device Take 1 device by intraute rine route. 07/03 completed Not Available Not Available Not Available loratadin e 10 mg tablet 01/02 completed Not Available Not Available Not Available naproxen 500 mg tablet 04/30 completed Not Available Not Available Not Available amoxicill in 875 mg-potass ium clavulana te 125 mg tablet 04/30 completed Not Available Not Available Not Available medroxypr ogesteron e 150 mg/mL intramusc ular syringe 08/23 completed Not Available Not Available Not Available cyclobenz aprine 5 mg tablet 04/30 completed Not Available Not Available Not Available bupropion HCl XL 150 mg 24 hr tablet, extended release TAKE 1 TABLET BY MOUTH EVERY DAY IN THE MORNING 07/03 completed Not Available Not Available Not Available ferrous fumarate 324 mg (106 mg iron) tablet Take 1 tablet every day by oral route. 07/03 completed Not Available Not Available Not Available magnesium active Not Available Not Jo Ann ilable Not Available medroxypr ogesteron e 08/17 completed medroxyP ROGESTER one RxNorm: [id number] Allow Substitu tion: False Refill Denied: No Refill DateOccu rred: 05/13/20 20 Edited by: Angelique Daniels ) on 08/17/19 Stopped by: Angelique Daniels ) on 08/17/19 21 Not Available Not Available Not Available tranexami c acid 650 mg tablet Take 2 tablets 3 times a day by oral route for 3 days. 07/03 completed Not Available Not Available Not Available Lo Loestrin Fe 1 mg-10 mcg (24)/10 mcg (2) tablet TAKE 1 TABLET BY MOUTH EVERY DAY 09/09 completed Not Available Not Available Not Available Willam Fe 07/13 (28) 1 mg-20 mcg (21)/75 mg (7) tablet TAKE 1 TABLET BY MOUTH ONCE DAILY 01/02 completed Not Available Not Available Not Available cannabidi ol (CBD) oral oil Take by oral route. 07/12 completed Not Available Not Available Not Available ID NOW COVID-19 Test Kit TEST DIRECTED TODAY 01/02 completed Not Available Not Available Not Available Vitals Date Recorded Body height Body mass index (BMI) Body weight Body temperature Systolic blood pressure Diastolic blood pressure Provider Name and Address Organization Details Last Updated DateTime 162.56 cm 26.3 kg/m2 73370.3 5 g 97.5 [degF] 120 mm[Hg] 62 mm[Hg] Sarah Jai [facility] 4 11:09:32 Date Recorded Body height Body mass index (BMI) Body weight Systolic blood pressure Diastolic blood pressure Provider Name and Address Organization Details Last Updated DateTime 07/09/2023 162.56 cm 25.7 kg/m2 30872.86 g 116 mm[Hg] 70 mm[Hg] Priya [facility] [facility] IV 4 16:39:00 Date Recorded Body height Provider Name an d Address Organization Details Last Updated DateTime 07/12/2023 162.56 cm Priya [employer] [facility] IV 07/12/2023 14:09:54 Date Recorded Body height Body mass index (BMI) Body weight Systolic blood pressure Diastolic blood pressure Provider Name and Address Organization Details Last Updated DateTime 09/10/2023 162.56 cm 26.4 kg/m2 00482.2 2 g 96 mm[Hg] 52 mm[Hg] Racquel Xin [facility] 4 12:38:50 Date Recorded Body height Body mass index (BMI) Body weight Body temperature Systolic blood pressure Diastolic blood pressure Provider Name and Address Organization Details Last Updated DateTime 4 162.56 cm 26.8 kg/m2 87768.1 3 g 97.8 [degF] 104 mm[Hg] 70 mm[Hg] Kelvin Millan [facility] 4 15:29:27 Social History Question Answer Notes LastModified by Organizat ion Details LastModified Time Tobacco Smoking Status Never Smoker Alize Sundeep latoya [facility] 01/02/2022 11:35:51 What Is Your Level Of Alcohol Consumption? Occasional [email or web address] Information not available 01/02/2022 Are You Blind Or Do You Have Difficulty Seeing? No [email or web address] Information not available 01/02/2022 Are You Deaf Or Do You Have Serious Difficulty Hearing? No [email or web address] Information not available 01/02/2022 What Type Of Diet Are You Following? REGULAR [email or web address] Information not available 04/24/2023 How Many Children Do You Have? 2 [email or web address] Information not available 01/02/2022 What Is Your Relationship Status? Information not available 06/09/2021 Are You Sexually Active? Yes Information not available 06/09/2021 Do You Use Any Illicit Or Recreational Drugs? No [email or web address] Information not available 01/02/2022 Do You Or Have You Ever Used Any Other Forms Of Tobacco Or Nicotine? No [email or web address] Information not available 01/02/2022 Sex: Unknown Functional Status Question Answer Note LastModified by Organization D etails LastModified Time What is your exercise level? None [email or web address] Information not available 01/02/2022 Mental Status None recorded. Family History Relationship Description Onset Age of this Age Resolved Age Notes LastModified by Organization Details LastModified Time Maternal Aunt Malignant tumor of breast [email or web address] Not available 05/24 23:19:31 Medical History Condition Response Other Cancer N High Blood Pressure N Colon Cancer N Cytomegalovirus N Hyperthyroidism N Herpes (HSV) N Breast Cancer N Blood Transfusion N MRSA N Lung Cancer N Hypothyroidism N Depression N Incontinence N Panic Attacks N Neurological Disorder N Deep Vein Thrombosis N Anxiety Disorder N Autoimmune disease N Arthritis N Tuberculosis/Positive PPD N Shingles N Polycystic Ovarian Syndrome N Cervical Cancer N Chlamydia N Hematuria N Stroke N Varicosities N Crohn's Disease N Seasonal allergies N Alzheimer's/Dementia N COPD/Emphysema N HPV/Genital Warts N Endometriosis N IBS (Irritable Bowel Syndrome) N History of Abnormal Pap N High Cholesterol N Liver Disease N Kidney Infection N Fibromyalgia N Ulcer N Kidney Disease N HIV N Gallbladder disease N Sickle Cell Disease/Trait N Von Willebrand disease N ADD/ADHD N Eating Disorder N Anemia N Diabetes Mellitus (non-insulin dependent ) N Ovarian Problems N Multiple Sclerosis N Gonorrhea N Frequent Urinary Tract infections N Osteopenia N Headaches/migraines N GERD (reflux) N Ovarian Cancer N Diabetes (insulin dependent) N Seizures/Epilepsy N Fibroids N Heart Attack N Asthma N Lupus N Endometrial Cancer N Rubella N Blood Clotting Disorder N Bipolar Disorder N Diabetes Mellitus (during ) N Ulcerative Colitis N Hepatitis N Heart Disease N Pulmonary Embolism N RPR N Chicken Pox N Osteoporosis N Gynecological History Statement/Question Response Flow Heavy Frequency of Cycle (Q days) 28 Date of LMP 04/13/2024 Most Recent Bone Density HPV Vaccine Y Date of Last Pap Smear 04/24/2023 Duration of Flow (days) 2 Most Recent Mammogram Current Control Method Ablation Age at Menarche 11 Obstetrics History GPAL:G 2 P 2 0 0 2 Type Value Multiple Births 0 Full Term 2 Induced 0 Spontaneous 0 Premature 0 Living 2 Ectopics 0 Total 2 Past Encounters Encounter ID Performer Location Encounter Start Date Encounter Closed Date Diagnosis/Indication Diagnosis SNOMED-CT Code Diagnosis ICD10 Code Diagnosis Note [id number] ROBBIE Grant [facility] [address] [place] [address] 06/12/2021 10:00:46 06/27/2021 13:27:50 Contraception care [id number] Z30.09 Patient case to order Paragard IUD initiated. [id number] ROBBIE Grant [facility] h [address] [place] [address] 08/23/2021 15:35:07 08/24/2021 15:35:33 Insertion of intrauterine contraceptive device [id number] Z30.430 - Risks of abnormal bleeding, uterine perforatio n (06/999), infection, interrupti on of , expulsion, failure, and ectopic in rare cases were reviewed and all questions were answered - After reviewing Paragard literature , consent was signed and witnessed - IUD placed without incident - Reviewed >99% efficacy as contracept mari and potential for AUB/crampi ng for first few days to months. U/S today for IUD placement. F/U if problems, questions, or concerns. [id number] Karol Rojas CNM [facility] [address] [place] [address] 01/02/2022 10:28:04 01/02/2022 20:51:34 Gynecologic examination [id number] Z01.419 26 y.o. here for annual exam. - Pap up to date from 2019 - NILM- STI testing: declines- Contracept ion: paraguard - periods are heavy but regular- Family h/o breast cancer _none- Depression screen NEG- BMI counseling , diet and exercise reviewed- STI prevention discussed- Dietary supplement s: multivitam in, Vit D, fish oil- RTO for annual or PRN Depression screening [id number] Z13.31 [id number] Karol Rojas CNM [facility] [address] [place] [address] 02/08/2022 11:23:47 02/08/2022 14:15:40 Menorrhagia [id number] N92.0 Still bleeding heavily with cycle - clots and needing to use double protection . Has paraguard and does not want hormones to control bleeding. TXA discussed and informed for short time treatment at this time. May want to consider hormonal therapy in the future. Pt would like to try TXA for now. F/u in 3 months. [id number] Karol Rojas CNM [facility] [address] [place] [address] 07/12/2022 17:01:08 07/12/2022 18:23:23 Removal of intrauterine device [id number] Z30.432 IUD removed intact. Pt continues to have heavy bleeding w/IUD and wants to try CHC. Initial pr escription of oral contraception [id number] Z30.011 COUNSELING was provided today regarding the following: - CHC use was discussed with the patient in detail including starting CHC risks, benefits, side effects, and ACHES. - Backup contracept ion x 2 weeks after quick start today - Back-up contracept ion was encouraged if the patient misses pills or takes antibiotic s. - Condoms should be used for STI prevention . - No absolute or relative contraindi cations to EMY use were identified [id number] DAISY ARMIJO [facility] [address] [place] [address] 07/03/2023 10:54:13 07/03/2023 17:21:19 Pain of breast 23727272 N64.4 Pt comes in today for Breast Tenderness /Pain.Pt educated on breast cancer screening guidelines and discussed normal CBE in office.Dis cussed physiology of transient aching breasts including diet, stress, hormonal changes. Pt encouraged to increase water intake. Pt encouraged to decrease caffeine, chocolate, and nut intake in diet. Discussed change in bra type.Pt may use OTC Oral NSAID and/or topical anti-infla mmatory. Discussed complement dona therapy of Evening [place] oil- up to 3,000 mg daily for 2 weeks and beyond if it helps.Will send for bilateral mammo/US at [facility]. Breast lump [id number] N63 .0 Pt educated on exam findings, and discussed recommenda tion for R breast U/S.Patien t has hx of right lumpectomy .PE notable for small lump size of quarter at 3 o'clock on right breast.Fur ther POC pending imaging results. Pt states understand ing of POC. [id number] Kathya Elias MD [facility] [address] [place] [address] 07/09/2023 15:57:52 07/09/2023 20:07:39 Menometrorrhagia [id number] N92.1 discussed work up and management of heavy menstrual bleeding. Advised that ultrasound will be done to assess for causes of menorrhagi a like fibroids, polyps.Pt is requesting to consider ablation. Discussed the ablation procedure, that it may be appropriat e for her as she has completed her family. Advised that ablation and tubal may be done together.A s pt is not high risk for endometria l hyperplasi a, could defer endo bx and sample at time of surgery.pt desires to move forward with work up and will schedule ultrasound [id number] Kathya Elias MD [address] [address] 07/12/2023 13:42:50 07/12/2023 15:03:56 Menorrhagia [id number] N92.0 reviewed and discussed ultrasound images, uterus appears normal and should be amenable to endometria l ablationDi scussed that the ablation done at her age should not be expected to result in amenorrhea , but in shorter wire coiner menstrual cycles.She is interested in scheduling the procedure, will send order Family anika nning education [id number] Z30.02 discussed that tubal sterilizat ion is done in conjunctio n with endometria l ablation to avoid unplanned , that the ablation itself does not prevent , but can be harmful to a developing fetus and also dangerous to the mother. Women who desire more children are not given ablations [id number] Kathya Elias MD [address] [address] 09/10/2023 11:26:28 09/10/2023 13:20:30 Postoperative visit [id number] Z09 status post lsc salpingect omies and hysterosco py with ablation, doing wellAsked to follow up in 3-4 months to follow up ablation results [id number] MAGALIS OWENS NP [facility] [address] [place] [address] 04/30/2024 15:21:13 04/30/2024 16:56:49 Pain in pelvis [id number] R10.2 Ms. Gonzales, a 29 yo presents to clinic with c/o left sided pain, hot flashes & excessive sweating. She says that the pain, she notices when at the gym & goes to reach it feels like something pull/stret roopa. I discussed could be scar tissue. Says that she's noticed the pain for last 3 months & is concerned. - also says that she is having hot flashes & excessive sweating. is not on any thyroid medication , but says that her dad does have thyroid problems.- expresses pain on the right side of her perineum when she sits, concerned about a hemorrhoid . I explained the area & I do not see or feel any bumps. Do not see any hemorrhoid s. Discussed trying warm compresses . Elizabeth for an USlabs todaysandyll discuss lab results after US & see if perineum is any better at next visit. Erasmo ponce thirty minutes spent with patient in consultati on (>50% face-to-fa ce). Patient labs and notes were reviewed. Patient questions were answered. Additional patient care was coordinate d. [place] [id number] R23.2 Excessive sweating 88915 005 R61 Health Concerns Section Related Observation LastModified by Organization Detai ls LastModified Time None Recorded Concern Status LastModified by Organization Details LastModified Time None Recorded Advance Directives Directive None Recorded Payers Encounter Date Sequence Insurance Name Policy Number Policy Puga Covered Member ID Puga Member ID Guarantor Name 07/03/2023 1 [employer] [place] [id number] Aleyda Gonzales [id number] [facility] Gonzales 07/09/2023 1 [employer] [place] [id number] Aleyda Gonzales [id number] Aleyda Gonzales 07/12/2023 1 [employer] [place] [id number] Aleyda Gonzales [id number] Aleyda Gonzales 09/10/2023 1 [employer] [place] [id number] Aleyda Gonzales [id number] Aleyda Gonzales 04/30/2024 1 [employer] [place] [id number] 0003 Aleyda Gonzales [id number] [facility] Gonzales Notes Date Note Type Note Provider Name and Address Organization Details Recorded Time 07/03/2023 text/html Breast PainRepor dominga bypatient.Location:ri ght; left; at the nipple; both breast, left breast more painful Onset/Timin-4 weeks Duration:constant Quality:sharp; burning (nipple area) Severity:pain level 3/10 Context:sexually active; family history of breast cancer; lumpectomy Modifying Factors:touch Associated Symptoms:no fever; no chills; no skin redness; no chest pain; no breast lump;nipple discharge;sore nipples DAISY ARMIJO [facility], [place], [address], [facility] [employer] IV 07/03/2023 11:39:06 07/09/2023 text/html Patient is here to discuss possible ablation due to irregular bleeding. States she has an iron deficiency and went through iron infusions in 2021 and 2022. control pills were working but for the past few months she has been having 2-3 periods a month.She has 2 children and is certain she does not want any more.She reports that her periods were so heavy she had to put on the large pads and she would saturate them. She had an IUD for control, but had that removed due to heavy periods and was put on ocp Loloestrin but now is bleeding too frequently Kathya Elias MD [address] [place] [address], [address], [facility] [employer] 07/09/2023 20:07:19 07/12/2023 text/html Aleyda returns for work up for menorrhagia including ultrasound today. She has tried both ocp and Mirena but have not been successful at ameliorating symptomShe reports that she has completed her family, does not want any further children.her accompanies her today Kathya Elias MD [address] [place] [address], [phone], [facility] [employer] 07/12/2023 15:03:46 09/10/2023 text/html Aleyda comes in fo r post op check from her tubal sterilization/bilater al salpingectomies and endometrial ablation done 08/23/23.She reports having had some gas pain the first day after procedure. no issues with cramping. incisions are doing fine.She is still having a scant discharge, currently bl tinged Kathya Elias MD [address] [place] [address], [phone], [employer] 09/10/2023 13:19:51 04/30/2024 text/html Aleyda is here to discuss symptoms she's been having since having the ablation, and tubal ligation procedures earlier this year. She states she has been experiencing migraines, hot flashes, excessive sweating. Pt also c/o having pain in her left side that feels like a pulled muscle. She says it is in the area where her procedure scar is. Pt says she also has been feeling uncomfortable in the bikini area between her labia and thigh. She says it feels like there is something there in that area under the skin. MAGALIS OWENS, RIGGING FOREMAN [address] [place], [address], [facility] [employer] 04/30/2024 16:11:35 OBGyn Episode Ob Episode Information Episode Created Date Number of Fetuses Patient Bloodtype Patient rh Status Prepregnancy Weight lbs Domestic Partner Domestic Partner Phone Father Name Chief Engineer Research Status 06/09/20 21 1 CLOSED Fetus Data First Name Last Name Admitted to NICU Weight (g) Sex Living Outcome Pediatric Complications Fetus ID Race Codes Race Delivery Type 4082.32 8 M Full Term [id number] Miguel Calculation Initial Miguel Date Initial Exam Date Initial Exam Provider Initial Ultrasound Date Last Menstrual Period Date Ultra Sound Weeks Gestation 0 Eighteen To Twenty Week Miguel Update Ultra Sound Date Fundal Height At Umbil Quickening Date Ultra Sound Latest Weeks Gestation Final Miguel Confirmed By Final Miguel Confirmed Date Final Miguel Date Ultra Sound Latest Days Gestation 0 0 Menstrual History Last Menstrual Date Menses Monthly On Bcp Conception Prior Menses Frequency Hcg Plus Date Menarche Onset Age Delivery Information Delivery Date Delivery Type Labor Anesthesia Weeks Gestation Incision Type Labor Labor Length Hrs Delivered By Post Complications Tubal Sterilization Discharge Date Comments 3 Discharge Information Feeding Method Contraceptive Method Maternal HG B and HCT Levels Ob Episode Information Episode Created Date Number of Fetuses Patient Bloodtype Patient rh Status Prepregnancy Weight lbs Domestic Partner Domestic Partner Phone Father Name Chief Engineer Research Status 06/09/20 21 1 CLOSED Fetus Data First Name Last Name Admitted to NICU Weight (g) Sex Living Outcome Pediatric Complications Fetus ID Race Codes Race Delivery Type 3628.73 6 M Full Term [id number] Miguel Calculation Initial Miguel Date Initial Exam Date Initial Exam Provider Initial Ultrasound Date Last Menstrual Period Date Ultra Sound Weeks Gestation 0 Eighteen To Twenty Week Miguel Update Ultra Sound Date Fundal Height At Umbil Quickening Date Ultra Sound Latest Weeks Gestation Final Miguel Confirmed By Final Miguel Confirmed Date Final Miguel Date Ultra Sound Latest Days Gestation 0 0 Menstrual History Last Menstrual Date Menses Monthly On Bcp Conception Prior Menses Frequency Hcg Plus Date Menarche Onset Age Delivery Information Delivery Date Delivery Type Labor Anesthesia Weeks Gestation Incision Type Labor Labor Length Hrs Delivered By Post Complications Tubal Sterilization Discharge Date Comments 1 Discharge Information Feeding Method Contraceptive Method Maternal HG B and HCT Levels
--- OUTSIDE RECORDS SUMMARY | 2024-09-01 10:24 | XMS_ITS | Encounter Summary ---
Author Organization [facility] Address [address] [place] [address] Care Team Providers Care Cargo Service Supervisor Name Role Phone Yane Muñiz MD Primary Care Provider [phone] Encounter Details Date Type Department Care Team (Late st Contact Info) Description 02/11/2024 Therapy Plan [facility] Physical Therapy [address] [place] [address] Tiny Rahman, [place] [address] Social History Tobacco Use Types Packs/Day Years [...] on file documented as of this encounter Visit Diagnoses Not on filedocumented in this encounter Additional Health Concerns Assessment Noted Time PHQ-9 Depression Total Score: 14 023 9:12 AM SURVEYOR INSTRUMENT ASSISTANT documented as of this encounter Care Teams Cargo Service Supervisor Relationship Specialty Start Date End Date Yane Muñiz [place] [address] [place] [address] PCP - General FAMILY PRACTICE 04/19/22 documented as of this encounter
--- OUTSIDE RECORDS SUMMARY | 2024-09-01 10:24 | XMS_ITS | Encounter Summary ---
Author Organization [facility] Address [address] [place] [address] Care Team Providers Care Broom Worker Name Role Phone Yane Muñiz MD Primary Care Provider [phone] Encounter Details Date Type Department Care Team (Late st Contact Info) Description 07/08/2022 Ziebel Message Enc [facility] Medical [facility] Family & Internal Medicine [facility] [address] [place] [phone] Yane Muñiz [place] [id number] [place] [address]. [address] [place] [address] Question regarding FERRITIN Social History Tobacco Use Types Packs/Day Years Used Date Smoking Tobacco: Never Smokeless Tobacco: Never Alcohol Use Standard Drinks/Week Comments Yes 0 (1 standard drink = 0.6 oz pur e alcohol) Social PHQ-2 Answer Date Recorded Patient Health Questionnaire-2 Score 6 06/05/2022 Comments No Sex and Gender Information Value Date Recorded Sex Assigned at Not on file Legal Sex Female 4:57 PM CDT Gender Identity Not on file Sexual Orientation Not on file COVID-19 Exposure Response Date Recorded In the last 10 days, have yo u been in contact with someone who was confirmed or suspected to have Coronavirus/COVID-19? No / Unsure 06/14/2022 8:48 AM DIESEL PLANT OPERATOR documented as of this encounter Progress Notes * Vika Morley RN - 07/09/2022 10:31 AM CST Medication sent EL PLANT OPERATOR documented in this encounter Plan of Treatment Not on file documented as of this encounter Visit Diagnoses Not on filedocumented in this encounter Additional Health Concerns Assessment Noted Time PHQ-9 Depression Total Score: 18 022 8:31 AM DIESEL PLANT OPERATOR documented as of this encounter Care Teams Broom Worker Relationship Specialty Start Date End Date Yane Muñiz [place] [address] [address] [place] [address] PCP - General FAMILY PRACTICE 04/19/22 documented as of this encounter
--- OUTSIDE RECORDS SUMMARY | 2024-09-01 10:24 | XMS_ITS | Encounter Summary ---
Author Organization [facility] Address [facility] [place] [address] Care Team Providers Care Senior Reservoir Engineer Name Role Phone Yane Muñiz MD Primary Care Provider [phone] Encounter Details Date Type Department Care Team (Latest Contact Info) Description 08/31/2024 Travel Social History Tobacco Use Types Packs/Day Years [...] Depression Total Score: 14 023 9:12 AM PREFLIGHT MECHANIC documented as of this encounter Care Teams Senior Reservoir Engineer Relationship Specialty Start Date End Date Yane Muñiz [place] [address] [place] [address] PCP - General FAMILY PRACTICE 04/19/22 documented as of this encounter
--- OUTSIDE RECORDS SUMMARY | 2024-09-01 10:24 | XMS_ITS | Encounter Summary ---
Author Organization [facility] Address [address] [place] [address] Care Team Providers Care Engineering Technical Specialist Name Role Phone Yane Muñiz MD Primary Care Provider [phone] Encounter Details Date Type Department Care Team (Late st Contact Info) Description 09/11/2022 [employer] Message [facility] Family & Internal Medicine [address] [address] Jesika, [facility] Provider results Social History Tobacco Use Types Packs/Day Years Used Date Smoking Tobacco: Never Smokeless Tobacco: Never Alcohol Use Standard Drinks/Week Comments Not Currently 0 (1 standard drink = 0.6 oz pur e alcohol) Social PHQ-2 Answer Date Recorded Patient Health Questionnaire-2 Score 4 07/17/2022 Comments No Sex and Gender Information Value Date Recorded Sex Assigned at Not on file Legal Sex Female 4:57 PM CDT Gender Identity Not on file Sexual Orientation Not on file COVID-19 Exposure Response Date Recorded In the last 10 days, have yo u been in contact with someone who was confirmed or suspected to have Coronavirus/COVID-19? No / Unsure 08/30/2022 7:00 AM SUPERVISORY GEOGRAPHER documented as of this encounter Plan of Treatment Not on file documented as of this encounter Visit Diagnoses Not on filedocumented in this encounter Additional Health Concerns Assessment Noted Time PHQ-9 Depression Total Score: 14 023 9:12 AM SUPERVISORY GEOGRAPHER documented as of this encounter Care Teams Engineering Technical Specialist Relationship Specialty Start Date End Date Yane Muñiz MD [address] [place] [address] [place] [address] PCP - General FAMILY PRACTICE 04/19/22 documented as of this encounter
--- OUTSIDE RECORDS SUMMARY | 2024-09-01 10:25 | XMS_ITS | Encounter Summary ---
Author Organization [facility] Address [facility] [place] [address] Care Team Providers Care Railroad Car Checker Name Role Phone Yane Muñiz MD Primary Care Provider [phone] Encounter Details Date Type Department Care Team (Late st Contact Info) Description 04/30/2022 Therapy Plan [facility] Day [facility] [address] [place], [place] [id number] Yane Muñ[place] [address] [facility] [address] [place], [place] [id number] Social History Tobacco Use Types Packs/Day Years Used Date Smoking Tobacco: Never Smokeless Tobacco: Never Alcohol Use Standard Drinks/Week Comments Yes 0 (1 standard drink = 0.6 oz pur e alcohol) Social PHQ-2 Answer Date Recorded PHQ-2 Score - If the patient scores above 3, please move on to questions 3-9 3 04/25/2021 Comments No Sex and Gender Information Value Date Recorded Sex Assigned at Not on file Legal Sex Female 4:57 PM CDT Gender Identity Not on file Sexual Orientation Not on file COVID-19 Exposure Response Date Recorded In the last 10 days, have yo u been in contact with someone who was confirmed or suspected to have Coronavirus/COVID-19? No / Unsure 04/23/2022 11:21 AM CDT documented as of this encounter Plan of Treatment Not on file documented as of this encounter Visit Diagnoses Not on filedocumented in this encounter Additional Health Concerns Assessment Noted Time PHQ-9 Depression Total Score: 10 021 9:50 AM CDT documented as of this encounter Care Teams Railroad Car Checker Relationship Specialty Start Date End Date Yane Muñiz [place] [address] [place] [address] PCP - General FAMILY PRACTICE 04/19/22 documented as of this encounter
--- OUTSIDE RECORDS SUMMARY | 2024-09-01 10:25 | XMS_ITS | Referral Summary ---
Author Organization [facility] Address [address] [place] [address] Care Team Providers Care Membership Counselor Name Role Phone Yane Muñiz MD Primary Care Provider [phone] Allergies No known active allergies Medications fluticasone propionate (FLONASE) 50 mcg/actuation nasal spray Administer 1 spray into each nostril daily Active ferrous sulfate 325 mg (65 mg of elemental iron) tablet Take 1 tablet (325 mg total) by mouth daily Active HYDROcodone-blade taminophen (NORCO) 5-325 mg per tabletIndicatio ns:Pain Take 1 tablet by mouth every 6 (six) hours as needed for pain 4 Active Active Problems Problem Noted Date Diagnosed Date Iron deficiency anemia 04/27/2022 Social History Tobacco Use Types Packs/Day Years Used Date Smoking Tobacco: Former Cigarettes Smokeless Tobacco: Never AUDIT-C Answer Date Recorded Q1: How often do you have a drink containing alcohol? Never 08/23/2023 Q2: How many drinks containi ng alcohol do you have on a typical day when you are drinking? Patient does not drink Q3: How often do you have si x or more drinks on one occasion? Never 08/23/2023 Personal Safety Answer Date Recorded Have you ever been in or are you currently in a harmful physical or emotional relationship or is someone making you feel afraid or unsafe? Denies 08/23/2023 Comments No Sex and Gender Information Value Date Recorded Sex Assigned at Not on file Legal Sex Female 8:09 PM ASPNET DEVELOPER Gender Identity Not on file Sexual Orientation Not on file Last Filed Vital Signs Vital Sign Reading Time Taken Comments Blood Pressure 117/71 08/23/2023 2:00 PM ASPNET DEVELOPER Pulse 80 08/23/2023 2:00 PM ASPNET DEVELOPER Temperature 36.9 C (98.4 F) 08/23/2023 12:00 PM ASPNET DEVELOPER Respiratory Rate 15 08/23/2023 2:00 PM ASPNET DEVELOPER Oxygen Saturation 99% 08/23/2023 2:00 PM ASPNET DEVELOPER Inhaled Oxygen Concentration - - Weight 68.2 kg (150 lb 6.4 oz) 08/23/2023 7:40 A M ASPNET DEVELOPER Height 165.1 cm (5' 5 ) 08/23/2023 7:40 AM ASPNET DEVELOPER Body Mass Index 25.03 08/23/2023 7:40 AM ASPNET DEVELOPER Plan of Treatment Not on file Insurance [place] [id number] [facility] Care Teams Membership Counselor Relationship Specialty Start Date End Date Yane Muñiz [place] [address] [place] [address] PCP - General Family Medicine 08/13/23
--- OUTSIDE RECORDS SUMMARY | 2024-09-01 10:25 | XMS_ITS | Clinical Summary ---
Author Organization [facility] Address [address] [place] [address] Care Team Providers Care Loss Prevention Investigator Name Role Phone Yane Muñiz MD Primary Care Provider [phone] Allergies No known active allergies Medications fluticasone [...] Date Diagnosed Date Iron deficiency anemia 04/27/2022 Surgical History Surgery Date Site/Laterality Comments BREAST SURGERY lumpectomy Medical History Medical History Date Comments Anxiety states has bad a nxiety but has not found a med that helps Headache tension Iron deficiency anemia has had i marcel infusions in past Fatigue GERD (gastroesophageal reflux disease) ADHD (attention deficit hype ractivity disorder) Sleep apnea Social History Tobacco Use Types Packs/Day Years [...] on file Legal Sex Female 8:09 PM RESERVATION CLERK Gender Identity Not on file Sexual Orientation Not on file Obstetrics History Last Filed Vital Signs Vital Sign Reading Time Taken Comments Blood Pressure 117/71 08/23/2023 2:00 PM RESERVATION CLERK Pulse 80 08/23/2023 2:00 PM RESERVATION CLERK Temperature 36.9 C (98.4 F) 08/23/2023 12:00 PM RESERVATION CLERK Respiratory Rate 15 08/23/2023 2:00 PM RESERVATION CLERK Oxygen Saturation 99% 08/23/2023 2:00 PM RESERVATION CLERK Inhaled Oxygen Concentration - - Weight 68.2 kg (150 lb 6.4 oz) 08/23/2023 7:40 A M RESERVATION CLERK Height 165.1 cm (5' 5 ) 08/23/2023 7:40 AM RESERVATION CLERK Body Mass Index 25.03 08/23/2023 7:40 AM RESERVATION CLERK Plan of Treatment Health Maintenance Due Date Last Done Comments Cervical Cancer Screening 1994 Depression Screening 1994 Hepatitis C Screening 1994 Varicella Vaccines (1 of 2 - 13+ 2-dose series) 2007 Regular Well Visit/Exam 18-64 2012 DTaP/Tdap/Td Vaccine (9 - Td or Tdap) 05/28/2017 05/28/2007, 05/28/2007, 04/13/2005, Additional history exists Covid-19 Vaccine ( season) 2024 10/03/2020, 09/12/2020 Influenza Vaccine (#1) 2024 05/12/2018, 2017 HPV Vaccines Completed 11/26/2007, 10/2007, 05/28/2007 Hepatitis B Screening Completed 12/23/2008 , 07/01/2007, 05/28/2007 Pneumococcal vaccine <65 Aged Out No longer eligible based on patient's age to complete this topic Insurance [facility] Care Teams Loss Prevention Investigator Relationship Specialty Start Date End Date Yane Muñiz [place] [address] [place] [address] PCP - General Family Medicine 08/13/23
--- OUTSIDE RECORDS SUMMARY | 2024-09-01 10:25 | XMS_ITS | Encounter Summary ---
Author Organization [facility] Address Critical access hospital[address] [place] [address] Care Team Providers Care Employee Benefits Specialist Name Role Phone Yane Muñiz MD Primary Care Provider [phone] Encounter Details Date Type Department Care Team (Late st Contact Info) Description 10/04/2022 Blitsy Message Enc [facility] Medical Group Family & Internal Medicine [address] [address] Jesika, [facility] Provider iron infusion Social History Tobacco Use Types Packs/Day Years [...] suspected to have Coronavirus/COVID-19? No / Unsure 10/05/2022 10:39 AM CDT documented as of this encounter Plan of Treatment Not on file documented as of this encounter Visit Diagnoses Not on filedocumented in this encounter Additional Health Concerns Assessment Noted Time PHQ-9 Depression Total Score: 14 023 9:12 AM RECRUITING COORDINATOR documented as of this encounter Care Teams Employee Benefits Specialist Relationship Specialty Start Date End Date Yane Muñiz MD [address] [place] [address]. [address] [place] [address] PCP - General FAMILY PRACTICE 04/19/22 documented as of this encounter
--- OUTSIDE RECORDS SUMMARY | 2024-09-01 10:25 | XMS_ITS | Encounter Summary ---
Author Organization [facility] Address [address] [place] [address] Care Team Providers Care Warehouse Freight Handler Name Role Phone Yane Muñiz MD Primary Care Provider [phone] Encounter Details Date Type Department Care Team (Latest Contact Info) Description 01/03/2023 WizeHive Message Enc [facility] Medical Group Family & Internal Medicine [facility] [address] [place] [address] Yane Muñ[place] [address] [email or web address] [place] [address] Question regarding POLYSOMNOGRAPHY 4 OR MORE PARAMETERS Social History Tobacco Use Types Packs/Day Years [...] Depression Total Score: 14 023 9:12 AM ORCHID HAND documented as of this encounter Care Teams Warehouse Freight Handler Relationship Specialty Start Date End Date Yane Muñiz [place] [address] [email or web address] [place] [address] PCP - General FAMILY PRACTICE 04/19/22 documented as of this encounter
--- OUTSIDE RECORDS SUMMARY | 2024-09-01 10:25 | XMS_ITS | Encounter Summary ---
Author Organization [facility] Address [facility] [place] [address] Care Team Providers Care Neuropsychology Division Chief Name Role Phone Yane Muñiz MD Primary Care Provider [phone] Encounter Details Date Type Department Care Team (Late st Contact Info) Description 10/04/2022 Spartan Race Message Enc [facility] Medical Group Family & Internal Medicine [address] [address] Jesika, [facility] Provider iron infusion Social History Tobacco [...] Depression Total Score: 14 023 9:12 AM C 40A CREW CHIEF documented as of this encounter Care Teams Neuropsychology Division Chief Relationship Specialty Start Date End Date Yane Muñiz MD [address] [place] [address]. [address] [place] [address] PCP - General FAMILY PRACTICE 04/19/22 documented as of this encounter
[2024-09-01 10:44] VITALS: BP 128/71; PULSE 85; RESP 16; O2SAT 100
[2024-09-01 10:52] LABS: Basophils Percent Auto 0.9 % (0.2-1.2); Eosinophils Absolute Auto 0.1 K/mm3 (0-0.3); Eosinophils Percent Auto 1.5 % (0-4.4); Hematocrit 40.6 % (37.0-47.0); Hemoglobin 13.1 g/dL (12.0-15.0); Immature Granulocyte Absolute 0.01 K/mm3 (0.00-0.031); Immature Granulocyte Percent A 0.2 % (0-0.5); Lymphocytes Absolute Auto 1.93 K/mm3 (0.9-3.2); Lymphocytes Percent Auto 41.2 % (18.3-44.2); Mean Corpuscular HGB Conc 32.3 g/dl (32-36); Mean Corpuscular Hemoglobin 29.5 pg (26-34); Mean Corpuscular Volume 91.4 fl (80-100); Mean Platelet Volume 9.6 fl (7.4-10.4); Monocytes Absolute Auto 0.5 K/mm3 (0.1-0.6); Monocytes Percent Auto 10.5 % (2.6-8.5); Neutrophils Absolute Auto 2.1 K/mm3 (1.3-6.7); Neutrophils Percent Auto 45.7 % (45.5-73.1); Platelet Count Result 283 k/mm3 (150-375); Red Blood Count 4.44 M/mm3 (4.2-5.4); Red Cell Distribution Width 12.9 % (11.5-14.5); White Blood Count 4.7 K/mm3 (4.5-10.0)
[2024-09-01 11:04] LABS: Alanine Aminotransferase 16 U/L (6-35); Albumin Level 4.5 g/dL (3.5-5.1); Alkaline Phosphatase 59 U/L (38-126); Anion Gap 10 mmol/L (4-12); Aspartate Amino Transferase 19 U/L (14-36); Bilirubin,Total 0.6 mg/dL (0.2-1.3); Blood Urea Nitrogen 12 mg/dL (7-17); Calcium 9.4 mg/dL (8.4-10.2); Carbon Dioxide 28 mmol/L (22-30); Chloride 104 mmol/L (98-107); Estimated CRCL calculation 89 ml/min; Estimated Glomerular Filt Rate > 60; Glucose 96 mg/dL (65-110); Potassium 3.5 mmol/L (3.4-5.0); Sodium 142 mmol/L (137-145)
[2024-09-01 11:06] LABS: Partial Thromboplastin Time 29.2 Seconds (22.3-36.8)
[2024-09-01 11:09] LABS: BEDSIDEPREGUCG Negative (Negative)
--- OUTSIDE RECORDS SUMMARY | 2024-09-01 11:40 | XMS_ITS | Clinical Summary ---
Author Organization [facility] Address [address] [place] [address] Care Team Providers Care Waiter/Waitress Tourist Class Name Role Phone Yusra Muñiz MD Primary Care Provider [phone] Allergies No known active allergies Medications fluticasone [...] Description 08/31/2024 12:45 PM CDT Hospital Encounter [facility] [address] [place] [address] Yusra Muñiz MD Arrived 08/31/2024 Travel 08/19/2024 Orders Only [facility] Family & Internal [address] [address] Yusra Muñiz MD 08/18/2024 MyChart Message Enc [facility] Internal [address] [address] Yusra Muñiz MD Urgent 08/18/2024 Telephone [facility] Family Internal [address] [phone] Yusra Muñiz MD Mammography Order 07/26/2024 Scan [employer] INFO SRVCS Scanned, [facility] 06/23/2024 12:17 PM INTENSIVE CARE AMBULANCE PARAMEDIC - 06/23/2024 11:59 PM INTENSIVE CARE AMBULANCE PARAMEDIC Hospital Encounter [facility] [address] [place] [address] Yusra Muñiz MD Discharge Disposition: Home or Self Care (Routine Discharge) 06/23/2024 9:00 AM INTENSIVE CARE AMBULANCE PARAMEDIC Laboratory Only [facility] Family & Internal [address] [phone] Yusra Muñiz MD 06/23/2024 Travel 06/22/2024 Telephone [facility] Internal [address] [phone] Yusra Muñiz MD Information from Last 3 [...] Comments Blood Pressure 103/65 05/25/2024 10:34 AM INTENSIVE CARE AMBULANCE PARAMEDIC Pulse 65 05/25/2024 10:34 AM INTENSIVE CARE AMBULANCE PARAMEDIC Temperature 36.3 C (97.3 F) 05/25/2024 10:34 AM INTENSIVE CARE AMBULANCE PARAMEDIC Respiratory Rate 14 05/25/2024 10:34 AM INTENSIVE CARE AMBULANCE PARAMEDIC Oxygen Saturation 94% 05/25/2024 10:34 AM INTENSIVE CARE AMBULANCE PARAMEDIC Inhaled Oxygen Concentration - - Weight 70.8 kg (156 lb) 05/25/2024 10:34 AM INTENSIVE CARE AMBULANCE PARAMEDIC Height 170.2 cm (5' 7 ) 05/25/2024 10:34 AM INTENSIVE CARE AMBULANCE PARAMEDIC Body Mass Index 24.43 05/25/2024 10:34 AM INTENSIVE CARE AMBULANCE PARAMEDIC Plan of Treatment Health Maintenance Due Date Last Done Comments DTaP, Tdap and Td Vaccines (10 - Td or Tdap) 05/28/2017 05/28/2007, 05/28/2007, 04/13/2005, Additional history exists Annual Physical 04/25/2022 04/25/2021 COVID-19 Vaccine ( season) 2024 10/03/2020, 09/12/2020 Influenza Adult (#1) 2024 05/12/2018 Cervical Cancer Screening Pap with HPV Testing (Age 30 to 64) Every 5 Years 2024 05/13/2020 PHQ-2 (Physician [place]) 06/24/2024 07/09/2023 Cervical Cancer Screening Pap Smear [...] VENOUS BLOOD VENIPUNCTURE Routine 06/23/2024 9:01 AM INTENSIVE CARE AMBULANCE PARAMEDIC Vaginal discharge Unprotected sex HIV 1 ANTIGEN(S), WITH HIV-1 AND HIV-2 ANTIBODIES Routine 06/23/2024 8:55 AM INTENSIVE CARE AMBULANCE PARAMEDIC Vaginal discharge Unprotected sex HEPATITIS C ANTIBODY Routine 05/25/2024 10:51 AM INTENSIVE CARE AMBULANCE PARAMEDIC Vaginal discharge Unprotected sex CYTOPATH CERV/VAG THIN LAYER Routine 06/05/2022 4:38 AM INTENSIVE CARE AMBULANCE PARAMEDIC OUTSIDE CYTOPATH CERV/VAG INTERPRET (PAP) 05/13/2020 from [...] 1:52 PM Narrative 08/31/2024 1:54 PM CDT [facility] [address] [place] [address] EXAMINATION: Digital bilateral diagnostic mammogram with 3-D [...] HIV-1 AND HIV-2 ANTIBODIES (06/23/2024 8:55 AM INTENSIVE CARE AMBULANCE PARAMEDIC) Pathologist [facility] HIV 1/2 AB+ HIV1 P24 AG NON-REACTI VE NON-REACTI VE 06/23/2024 4:15 PM INTENSIVE CARE AMBULANCE PARAMEDIC [facility] 06/23/2024 8:55 AM INTENSIVE CARE AMBULANCE PARAMEDIC us Yusra Muñiz MD LABORATORY Final Result [facility] [address] [place] [address], [place] [phone] * HEPATITIS C AB ([facility] ONLY) (05/25/2024 10:51 AM INTENSIVE CARE AMBULANCE PARAMEDIC) Pathologist [facility] HEPATITIS C AB NON-REACTI VE NON-REACTI VE 05/25/2024 8:25 PM INTENSIVE CARE AMBULANCE PARAMEDIC [facility] 05/25/2024 10:5 1 AM INTENSIVE CARE AMBULANCE PARAMEDIC us Yusra Muñiz MD LABORATORY Final Result [facility] [address] [place] [address], [place] [phone] * Cytopath Cerv/Vag Thin Layer (06/05/2022 4:38 AM INTENSIVE CARE AMBULANCE PARAMEDIC) Pathologist [facility] THIN PREP PAP [address] [phone] Department of Pathology Pathology Report CERVICAL/VAGINAL PAP SMEAR REPORT Name: GONZALES, ALEYDA Age: 10 1995 (Age: 27) Location: [facility] Sex: F Collected Date: 06/05/2022 [facility] #: [id number] Date Received: 06/07/2022 Date Reported: 06/11/2022 Provider: [...] is not effective in detecting cervical adenocarcinoma. [facility] 06/05/2022 4:38 AM INTENSIVE CARE AMBULANCE PARAMEDIC 06/07/2022 4:38 AM INTENSIVE CARE AMBULANCE PARAMEDIC Comment:CERVICAL/ENDOCERVICA L Yusra Muñiz MD PATHOLOGY/CYTOLOGY ORDERABLES Final Result [facility] [address] [place] [address], * PAP SMEAR WITH HPV (05/13/2020) 05/13/2020 us [facility] Scanned SCANNING Final Resu lt from Last 3 Months or Most Recently Relevant to Health Maintenance Insurance [facility] [place] [facility] Care Teams Waiter/Waitress Tourist Class Relationship Specialty Start Date [place] Date Yusra Muñiz [place] [address] [place] [address] PCP - General FAMILY PRACTICE 04/19/22
--- OUTSIDE RECORDS SUMMARY | 2024-09-01 11:40 | XMS_ITS | Encounter Summary ---
Author Organization [facility] Address [facility] [place] [address] Care Team Providers Care Deburring Machine Operator Name Role Phone Yane Muñiz MD Primary Care Provider [phone] Encounter Details Date Type Department Care Team (Late st Contact Info) Description 10/04/2022 Perdoo Message Enc [facility] Medical Group Family & Internal Medicine [address] [address] Jesika, [facility] Provider iron infusion Social History Tobacco Use [...] Depression Total Score: 14 023 9:12 AM METER READER INSPECTOR documented as of this encounter Care Teams Deburring Machine Operator Relationship Specialty Start Date End Date Yane Muñiz MD [address] [place] [address]. [address] [place] [address] PCP - General FAMILY PRACTICE 04/19/22 documented as of this encounter
--- OUTSIDE RECORDS SUMMARY | 2024-09-01 11:40 | XMS_ITS | Clinical Summary ---
Author Organization [facility] Address [address] [place] [address] Care Team Providers Care School Psychologist Assistant Name Role Phone Yane Muñiz MD Primary Care Provider [phone] Allergies No known active allergies Medications fluticasone [...] on file Legal Sex Female 8:09 PM VEST BASTER Gender Identity Not on file Sexual Orientation Not on file Obstetrics History Last Filed Vital Signs Vital Sign Reading Time Taken Comments Blood Pressure 117/71 08/23/2023 2:00 PM VEST BASTER Pulse 80 08/23/2023 2:00 PM VEST BASTER Temperature 36.9 C (98.4 F) 08/23/2023 12:00 PM VEST BASTER Respiratory Rate 15 08/23/2023 2:00 PM VEST BASTER Oxygen Saturation 99% 08/23/2023 2:00 PM VEST BASTER Inhaled Oxygen Concentration - - Weight 68.2 kg (150 lb 6.4 oz) 08/23/2023 7:40 A M VEST BASTER Height 165.1 cm (5' 5 ) 08/23/2023 7:40 AM VEST BASTER Body Mass Index 25.03 08/23/2023 7:40 AM VEST BASTER Plan of Treatment Health Maintenance Due Date [...] patient's age to complete this topic Insurance [facility] Care Teams School Psychologist Assistant Relationship Specialty Start Date End Date Yane Muñiz [place] [address] [place] [address] PCP - General Family Medicine 08/13/23
--- OUTSIDE RECORDS SUMMARY | 2024-09-01 11:40 | XMS_ITS | Encounter Summary ---
Author Organization [facility] Address [address] [place] [address] Care Team Providers Care Fibreglass Gun Hand Name Role Phone Yane Muñiz MD Primary Care Provider [phone] Encounter Details Date Type Department Care Team (Late st Contact Info) Description 02/11/2024 Therapy Plan [facility] Physical Therapy [address] [place] [address] Tiny Rahman, [place] [address] Social History Tobacco Use Types Packs/Day Years [...] Depression Total Score: 14 023 9:12 AM PULLMAN CAR REPAIRER documented as of this encounter Care Teams Fibreglass Gun Hand Relationship Specialty Start Date End Date Yane Muñiz [place] [address] [place] [address] PCP - General FAMILY PRACTICE 04/19/22 documented as of this encounter
--- OUTSIDE RECORDS SUMMARY | 2024-09-01 11:40 | XMS_ITS | Encounter Summary ---
Author Organization [facility] Address [address] [place] [address] Care Team Providers Care Ostrich Farm Worker Name Role Phone Yane Muñiz MD Primary Care Provider [phone] Encounter Details Date Type Department Care Team (Late st Contact Info) Description 09/11/2022 emaze Message [facility] Medical Group Family & Internal Medicine [address] [address] Jesika, [facility] Provider results Social History Tobacco Use Types [...] Coronavirus/COVID-19? No / Unsure 08/30/2022 7:00 AM HEAD RIGGER documented as of this encounter Plan of Treatment Not on file documented as of this encounter Visit Diagnoses Not on filedocumented in this encounter Additional Health Concerns Assessment Noted Time PHQ-9 Depression Total Score: 14 023 9:12 AM HEAD RIGGER documented as of this encounter Care Teams Ostrich Farm Worker Relationship Specialty Start Date End Date Yane Muñiz MD [address] [place] [address] [place] [address] PCP - General FAMILY PRACTICE 04/19/22 documented as of this encounter
--- OUTSIDE RECORDS SUMMARY | 2024-09-01 11:40 | XMS_ITS | Encounter Summary ---
Author Organization [facility] Address [address] [place] [address] Care Team Providers Care Assembly Line Leader Name Role Phone Yane Muñiz MD Primary Care Provider [phone] Encounter Details Date Type Department Care Team (Latest Contact Info) Description 01/03/2023 [employer] Message Enc [facility] Medical Group Family & Internal Medicine [facility] [address] [place] [address] Yane Muñiz [place] [address] [place] [address] Question regarding POLYSOMNOGRAPHY 4 OR MORE [...] Depression Total Score: 14 023 9:12 AM MANAGER PULMONARY documented as of this encounter Care Teams Assembly Line Leader Relationship Specialty Start Date End Date Yane Muñ[place] [address] [address] [place] [address] PCP - General FAMILY PRACTICE 04/19/22 documented as of this encounter
--- OUTSIDE RECORDS SUMMARY | 2024-09-01 11:40 | XMS_ITS | Encounter Summary ---
Author Organization [facility] Address [facility] [place] [address] Care Team Providers Care Crayon Grader Name Role Phone Yane Muñiz MD Primary Care Provider [phone] Encounter Details Date Type Department Care Team [...] Depression Total Score: 14 023 9:12 AM GUNSTOCK SPRAY UNIT FEEDER documented as of this encounter Care Teams Crayon Grader Relationship Specialty Start Date End Date Yane Muñiz [place] [address] [place] [address] PCP - General FAMILY PRACTICE 04/19/22 documented as of this encounter
--- OUTSIDE RECORDS SUMMARY | 2024-09-01 11:40 | XMS_ITS | Encounter Summary ---
Author Organization [facility] Address [facility] [place] [address] Care Team Providers Care Medical Biller Coder Name Role Phone Yane Muñiz MD Primary Care Provider [phone] Encounter Details Date Type Department Care Team (Late st Contact Info) Description 04/30/2022 Therapy Plan [facility] [address] [place], [place] [id number] Yane Muñ[place] [address] [facility] [place], [place] [id number] Social History Tobacco Use Types Packs/Day Years [...] documented as of this encounter Care Teams Medical Biller Coder Relationship Specialty Start Date End Date Yane Muñiz [place] [address] [address] [place] [address] PCP - General FAMILY PRACTICE 04/19/22 documented as of this encounter
--- OUTSIDE RECORDS SUMMARY | 2024-09-01 11:40 | XMS_ITS | Encounter Summary ---
Author Organization [facility] Address [facility] [place] [address] Care Team Providers Care Water Main Installer Helper Name Role Phone Yane Muñiz MD Primary Care Provider [phone] Encounter Details Date Type Department Care Team (Late st Contact Info) Description 10/04/2022 [employer] A/S Message Enc [facility] Medical Group Family & Internal Medicine [address] [address] Jesika, [facility] Provider iron infusion Social History Tobacco Use [...] Depression Total Score: 14 023 9:12 AM SENIOR WINDOWS SYSTEMS ADMINISTRATOR documented as of this encounter Care Teams Water Main Installer Helper Relationship Specialty Start Date End Date Yane Muñiz MD [address] [place] [address]. [address] [place] [address] PCP - General FAMILY PRACTICE 04/19/22 documented as of this encounter
--- OUTSIDE RECORDS SUMMARY | 2024-09-01 11:40 | XMS_ITS | Encounter Summary ---
Author Organization [facility] Address [address] [place] [address] Care Team Providers Care Gold Miner Name Role Phone Yusra Muñiz MD Primary Care Provider [phone] Encounter Details Date Type Department Care Team (Late st Contact Info) Description 08/31/2024 12:45 PM CDT Hospital Encounter [facility]ography [address] [place], [place] [phone] Yusra Muñiz [place] [address] [facility]. [address] [place] [address] Arrived Social History Tobacco Use Types Packs/Day [...] 1:52 PM Narrative 08/31/2024 1:54 PM CDT [facility] [address] [place] [address] EXAMINATION: Digital bilateral diagnostic mammogram with 3-D [...] Depression Total Score: 14 023 9:12 AM REAL ESTATE ACCOUNTANT documented as of this encounter Care Teams Gold Miner Relationship Specialty Start Date End Date Yusra Muñiz [place] [address] [place] [address] PCP - General FAMILY PRACTICE 04/19/22 documented as of this encounter
--- OUTSIDE RECORDS SUMMARY | 2024-09-01 11:40 | XMS_ITS | Encounter Summary ---
Author Organization [facility] Address [address] [place] [address] Care Team Providers Care Speed Reading Teacher Name Role Phone Yane Muñiz MD Primary Care Provider Encounter Details Date Type Department Care Team (Late st Contact Info) Description 07/08/2022 Halalati Message Enc [facility] Medical [facility] Family & Internal Medicine [facility] [address] [place] [address] Yane Muñiz [place] [address] [place] [address]. [address] [place] [address] Question regarding FERRITIN Social History [...] Coronavirus/COVID-19? No / Unsure 06/14/2022 8:48 AM MERGERS AND ACQUISITIONS MANAGER documented as of this encounter Progress Notes * Vika Morley RN - 07/09/2022 10:31 AM CST Medication sent ERS AND ACQUISITIONS MANAGER documented in this encounter Plan of Treatment Not on file documented as of this encounter Visit Diagnoses Not on filedocumented in this encounter Additional Health Concerns Assessment Noted Time PHQ-9 Depression Total Score: 18 022 8:31 AM MERGERS AND ACQUISITIONS MANAGER documented as of this encounter Care Teams Speed Reading Teacher Relationship Specialty Start Date End Date Yane Muñiz [place] [address] [address] [place] [address] PCP - General FAMILY PRACTICE 04/19/22 documented as of this encounter
--- OUTSIDE RECORDS SUMMARY | 2024-09-01 11:40 | XMS_ITS | Referral Summary ---
Author Organization [facility] Address [address] [place] [address] Care Team Providers Care Farm Operator Name Role Phone Yane Muñiz MD Primary Care Provider [phone] Allergies No known active allergies Medications fluticasone [...] on file Legal Sex Female 8:09 PM NITRO WORKER Gender Identity Not on file Sexual Orientation Not on file Last Filed Vital Signs Vital Sign Reading Time Taken Comments Blood Pressure 117/71 08/23/2023 2:00 PM NITRO WORKER Pulse 80 08/23/2023 2:00 PM NITRO WORKER Temperature 36.9 C (98.4 F) 08/23/2023 12:00 PM NITRO WORKER Respiratory Rate 15 08/23/2023 2:00 PM NITRO WORKER Oxygen Saturation 99% 08/23/2023 2:00 PM NITRO WORKER Inhaled Oxygen Concentration - - Weight 68.2 kg (150 lb 6.4 oz) 08/23/2023 7:40 A M NITRO WORKER Height 165.1 cm (5' 5 ) 08/23/2023 7:40 AM NITRO WORKER Body Mass Index 25.03 08/23/2023 7:40 AM NITRO WORKER Plan of Treatment Not on file Insurance [place] [id number] [facility] Care Teams Farm Operator Relationship Specialty Start Date End Date Yane Muñiz [place] [address] [address] [place] [address] PCP - General Family Medicine 08/13/23
--- OUTSIDE RECORDS SUMMARY | 2024-09-01 11:40 | XMS_ITS | Patient Health Record ---
Author Organization [facility] Address [address] [place] [address] Care Team Providers Care Electrical Design Technologist Name Role Phone Praneeth Dickerson Primary Care Provider Allergies No Known Allergies Reason For Referral No Information Medications Medication SIG (Take, Route, Frequency, Duration) Notes Start Date End Date Status Ferrous Sulfate 325 (65 Fe) MG 1 tablet Orally Once a day Active buPROPion HCl ER (XL) 150 MG 1 tablet in the morning Orally Once a day for 30 days Not-Taking Social History Tobacco Use: Social History Observation Description Date Details (start date - stop date) Never Smoker NA - NA Dont use, Tobacco Use/Smoking Question Answer Notes Are you a nonsmoker Problems Problem Type SNOMED Code ICD Code Onset Dates Problem Status W/U Status Risk Notes Problem Generalized anxiety disorder (33011971) Generalized anxiety disorder (F41.1) Active confirmed Problem Major depression (151820542) Major depression (F32.9) Active confirmed Plan Of Treatment No Information Insurance Providers Payer Name Payer Address Payer Phone Subscriber Number Group Number Insured Name Patient Relationship to Insured Coverage Start Date Coverage End Date [employer] [address] [place] [address] [id number] Christian Aleyda Self - patient is the insured 9 [employer] [address] [place] [address] [id number] Gonzales Aleyda Self - patient is the insured 9 Medical (General) History Hospitalization History Reason Date(Month/Year) 2 child
[2024-09-01] MEDS: HYDROcodone/acetaminophen (*CRX) 5-325 MG TABLET 1 TAB PO (11:59)
[2024-09-01 12:00] VITALS: BP 118/77; PULSE 99; RESP 20; O2SAT 100
== END 2024-09-01 12:49 | disposition home or self-care (01) ==
PROVIDERS: Emergency Provider Physician Assistant; PCP Family Medicine
DX: S63.632A Sprain of interphalangeal joint of right middle finger, initial encounter (principal); S70.02XA Contusion of left hip, initial encounter; T14.8XXA Other injury of unspecified body region, initial encounter; V48.6XXA Car passenger injured in noncollision transport accident in traffic accident, initial encounter
CPT/HCPCS: 29130; 36415; 70450; 71260; 72125; 72129; 72132; 73130; 73564; 74177; 80053; 81025; 85025; 85610; 85730; 99284; A9270; Q9967

== ENCOUNTER 2025-06-18 00:15 | Day surgery (SDC) | payer MEDICAID, SELFPAY ==
--- NOTE | 2025-06-10 16:24 | PC.NURSE ---
[facility] has started construction of its new state of the art ER which will open Spring 2026. With this, we anticipate parking may be a challenge for some our surgical patients and families. Parking spaces are limited but are available for all Surgical, obstetrics, and ER patients sharing this lot. If you arrive and find you are having a hard time finding a parking space, please note that we understand the challenges, please drive around the hospital and park near Hospital Entrance 1. When you enter this entrance, you can ask a volunteer to direct or take you back to the surgical waiting area to check in. We appreciate everyone?s understanding of these expected challenges while we build for your future. Report to the Outpatient Waiting Room, entrance under the green pavilion located off [address], at time __10:00AM on date _[id number] . Planned Procedure Time: _12:00PM .? Time changes happen often and if your time is changed the preop area will call you the afternoon before. - You and your visitor will be asked to self-screen and do not enter if you have any COVID symptoms. Please call surgeon if you need to reschedule. - A mask is optional within the hospital at this time. Patients may have clear liquids (water, carbonated beverages, clear teas, apple juice) until 3 hours prior to surgery with a maximum of 20 ounces. - No food from midnight until time of surgery and no smoking, or chewing tobacco (or any form of nicotine). No chewing gum, candy or mints. Take only the following medications with a SIP of water on the morning of surgery: Sertraline DO NOT STOP ANY OF YOUR OTHER PRESCRIPTION MEDICATIONS PRIOR TO SURGERY EXCEPT THE FOLLOWING N/A Hold all vitamins and supplements for 3 days per anesthesiologist. N/A Please no make-up, nail japanese, hairspray, perfume, deodorant, or body powder the day of surgery.? No jewelry (including any body piercings) or valuables the day of surgery, leave them at home.? Please take a shower or bath the night before, or the morning of, surgery with an antibacterial soap.? Wear comfortable, loose fitting clothing.? - Jewelry must be removed prior to entering the operating room.? Rings and piercings that are not removed may be cut off. - The hospital will not accept responsibility for valuables.? - Please leave all valuables, including medications, at home the day of surgery. If you are going home after surgery, a licensed commercial driver must drive you home.? - NO public transportation without another adult if you receive anesthesia. - We recommend that an adult stay with you for 24 hours following discharge. - We also recommend that you do not drive, make important decision, drink alcoholic beverages, or take any drugs that were not prescribed by your health care provider for at least 24 hours after your discharge time. Follow any additional instructions given to you from your surgeon. Telephone instructions given to ____FLOR/PATIENT and asked if any additional questions and then verbalized understanding. Patient advised to call surgeon office or pre surgery nurse liaison [phone] if any additional questions.
[2025-06-10 16:35] VITALS: BMI 26.1
--- NOTE | 2025-06-14 07:04 | PM.IMHP2 ---
H&P: HPI History of Present Illness Date/Time: 06/14/25 07:04 Chief Complaint: Menometrorrhagia and postcoital bleeding Narrative: This is a very pleasant 30-year-old female admitted for hysteroscopy dilatation curettage secondary to bleeding she is status post ablation and tubal ligation. She has had bleeding which has been refractory to medical therapy. Ultrasound was essentially unremarkable and DNA probes were negative risks and benefits of the procedure reviewed and all detail. She had all questions answered and asked to proceed. She understands this may be difficult due to her previous hysteroscopy and may be an adequate Review of Systems Review of Systems: CONSTITUTIONAL: Denies fever EYES: Denies visual changes GASTROINTESTINAL: Reports nausea, vomiting MUSCULOSKELETAL: Reports back pain, joint pain, and myalgia. NEUROLOGIC: Denies numbness, or weakness. All systems reviewed & are unremarkable except as noted in HPI and below PMFSH Past Medical History Medical History Anxiety Family History Family History Mother High cholesterol Social History Social History Smoking status: Never smoker Second hand tobacco smoke exposure: No Alcohol intake: current Alcohol use details: less than one a month Substance use: never Substance use type: does not use Living arrangements: with family Gender identity (if verbalized by the patient): Female Spiritual care concerns: No Meds Home Medications and Allergies Home Medications ?Medication ?Instructions ?Recorded ?Confirmed ?Type sertraline 100 mg tablet 100 mg PO DAILY 06/10/25 06/10/25 History valacyclovir 1 gram tablet 1,000 mg PO DAILY PRN VIRUS 06/10/25 06/10/25 History Allergies Allergy/AdvReac Type Severity Reaction Status Date / Time No Known Allergies Allergy Verified 06/10/25 16:37 Exam Narrative: GENERAL: Well-appearing, well-nourished, and in no acute distress. HEAD: Normocephalic, atraumatic. EYES: PERRLA and EOMI. ENT: Nares clear, no rhinorrhea or epistaxis. Mucous membranes moist. Oropharynx without tonsillar hypertrophy exudate or other lesions. Bilateral TMs pearly manriquez non-bulging NECK: Supple. No adenopathy or masses. CHEST: Clear to auscultation. No respiratory distress. No wheezes rales or rhonchi HEART: Regular rate and rhythm. No murmur heard. Normal peripheral pulses. ABDOMEN: Soft, nontender, nondistended, normal active bowel sounds. EXTREMITIES: Normal range of motion, except decreased active ROM in the right 3rd finger. No edema. Strength equal in bilateral upper and lower extremities (5/5) SKIN: Warm, dry, no rash. NEURO: No focal deficits. Alert and oriented x3. CN II-XII grossly intact. Normal gait PSYCH: Normal mood and affect Assessment and Plan Assessment and plan (1) Menorrhagia: Code(s): N92.0 - Excessive and frequent menstruation with regular cycle Status: Acute (2) Postcoital bleeding: Code(s): N93.0 - Postcoital and contact bleeding Status: Acute Plan Proceed with hysteroscopy/dilatation and curettage
--- OUTSIDE RECORDS SUMMARY | 2025-06-18 00:17 | XMS_ITS | Encounter Summary ---
Author Organization [facility] Address [address] [place] [address] Care Team Providers Care Retail Coverage Merchandiser Name Role Phone Yane Muñiz MD Primary Care Provider [phone] Encounter Details Date Type Department Care Team (Late st Contact Info) Description 07/08/2022 Kut Message Enc [facility] Medical Group Family & Internal Medicine [address] [address] Yane Muñiz [place] [id number] [place] [address]. [address] [place] [address] Question regarding FERRITIN Social History Tobacco Use Types Packs/Day Years Used Date Smoking Tobacco: Never Smokeless Tobacco: Never Alcohol Use Standard Drinks/Week Comments Yes 0 (1 standard drink = 0.6 oz pur e alcohol) Social PHQ-2 Answer Date Recorded Patient Health Questionnaire-2 Score 6 06/05/2022 Comments No Sex and Gender Information Value Date Recorded Sex Assigned at Female 10/22/2024 4:02 PM CDT Legal Sex Female 4:57 PM CDT Gender Identity Female 10/22/2024 4:02 PM CDT Sexual Orientation Not on file COVID-19 Exposure Response Date Recorded In the last 10 days, have yo u been in contact with someone who was confirmed or suspected to have Coronavirus/COVID-19? No / Unsure 06/14/2022 8:48 AM COMPOUND MIXER documented as of this encounter Progress Notes * Vika Morley RN - 07/09/2022 10:31 AM CST Medication sent OUND MIXER documented in this encounter Plan of Treatment Upcoming Encounters Date Type Department Care Team (Late st Contact Info) Description 07/12/2025 8:40 AM COMPOUND MIXER Office Visit [facility] Multispecialty Care - [facility] [address] [place] [address] Iain Velasquez DO [address] [place] [address] 12/13/2025 7:00 AM CDT Office Visit [facility] Family & Internal Medicine - [address] [address] Yane Muñ[place] [address] [facility] [address] [place] [address] documented as of this encounter Visit Diagnoses Not on filedocumented in this encounter Additional Health Concerns Assessment Noted Time PHQ-9 Depression Total Score: 18 12/2 022 8:31 AM COMPOUND MIXER documented as of this encounter Care Teams Retail Coverage Merchandiser Relationship Specialty Start Date End Date Yane Muñ[place] [address] [facility] [address]. [address] [place] [address] PCP - General FAMILY PRACTICE 04/19/22 documented as of this encounter
--- OUTSIDE RECORDS SUMMARY | 2025-06-18 00:18 | XMS_ITS | Encounter Summary ---
Author Organization [facility] Address [address] [place] [address] Care Team Providers Care Research Chemist Name Role Phone Yane Muñiz MD Primary Care Provider Encounter Details Date Type Department Care Team (Late st Contact Info) Description 04/30/2022 Therapy Plan [facility] One Day Services [address] [place], [place] [id number] Yane Muñ[place] [address] [place] [address] Social History Tobacco Use Types Packs/Day Years [...] as of this encounter Plan of Treatment Upcoming Encounters Date Type Department Care Team (Late st Contact Info) Description 07/12/2025 8:40 AM ORNAMENTAL METAL WORKER Office Visit [facility] Multispecialty Care - [facility] [address] [place] [address] VelasquezRolandoadryanDO [address] [place] [address] 12/13/2025 7:00 AM CDT Office Visit [facility] Family & Internal Medicine - [place] [address] [place] [address] Yane Muñ[place] [address] [facility] [address] [place] [id number] documented as of this encounter Visit Diagnoses Not on filedocumented in this encounter Additional Health Concerns Assessment Noted Time PHQ-9 Depression Total Score: 10 021 9:50 AM CDT documented as of this encounter Care Teams Research Chemist Relationship Specialty Start Date End Date Yane Muñiz [place] [address] [facility] [address] [place] [id number] PCP - General FAMILY PRACTICE 04/19/22 documented as of this encounter
--- OUTSIDE RECORDS SUMMARY | 2025-06-18 00:18 | XMS_ITS | Encounter Summary ---
Author Organization [facility] Address [address] [place] [address] Care Team Providers Care Psychiatric Technician Name Role Phone Yane Muñiz MD Primary Care Provider [phone] Encounter Details Date Type Department Care Team (Late st Contact Info) Description 10/04/2022 Jarvam Message Enc [facility] Medical Group Family & Internal Medicine [address] [address] Jesika, [facility] Provider iron infusion Social History Tobacco Use [...] st Contact Info) Description 07/12/2025 8:40 AM PHONE COUNSELOR Office Visit [facility] Multispecialty Care - [address] [place] [address] Iain Velasquez, DO [address] [place] [address] 12/13/2025 7:00 AM CDT Office Visit [facility] Medical Group Family & Internal Medicine - [place] [address] [place] [address] Yane Muñiz [place] [address] [place] [address] documented as of this encounter Visit Diagnoses Not on filedocumented in this encounter Additional Health Concerns Assessment Noted Time PHQ-9 Depression Total Score: 14 023 9:12 AM PHONE COUNSELOR documented as of this encounter Care Teams Psychiatric Technician Relationship Specialty Start Date End Date Yane Muñiz [place] [address] [address] [place] [address] PCP - General FAMILY PRACTICE 04/19/22 documented as of this encounter
--- OUTSIDE RECORDS SUMMARY | 2025-06-18 00:18 | XMS_ITS | Encounter Summary ---
Author Organization [facility] Address [address] [place] [address] Care Team Providers Care Shellfish Processing Laborer Name Role Phone Yane Muñiz MD Primary Care Provider [phone] Encounter Details Date Type Department Care Team (Late st Contact Info) Description 10/04/2022 Logopro Message Enc [facility] Medical Group Family & Internal Medicine [address] [address] Jesika, [facility] Provider iron infusion Social History Tobacco Use [...] st Contact Info) Description 07/12/2025 8:40 AM PREPRESS SPECIALIST Office Visit [facility] Multispecialty Care - [address], [address] [place] [address] Iain Velasuqez, DO [address] [place] [address] 12/13/2025 7:00 AM CDT Office Visit [facility] Medical Group Family & Internal Medicine - [place] [address] [place] [address] Yane Muñiz [place] [address] [place] [address] documented as of this encounter Visit Diagnoses Not on filedocumented in this encounter Additional Health Concerns Assessment Noted Time PHQ-9 Depression Total Score: 14 023 9:12 AM PREPRESS SPECIALIST documented as of this encounter Care Teams Shellfish Processing Laborer Relationship Specialty Start Date End Date Yane Muñiz [place] [address] [facility] [address] [place] [address] PCP - General FAMILY PRACTICE 04/19/22 documented as of this encounter
--- OUTSIDE RECORDS SUMMARY | 2025-06-18 00:18 | XMS_ITS | Clinical Summary ---
Author Organization [facility] Address [address] [place] [address] Care Team Providers Care Metal Bonder Name Role Phone Yusra Muñiz MD Primary Care Provider [phone] Allergies No known active allergies Medications valACYclovir (VALTREX) 500 MG tablet Take 1 tablet (500 mg total) by mouth daily. 5 Active loratadine (CLARITIN) 10 MG tabletIndicatio ns:Post-nasal drainage Take 1 tablet (10 mg total) by mouth daily as needed. 30 tablet 5 Active Additional Information Patient not taking.Reported on 06/10/2025 vitamin D3 (CHOLECALCIFERO L) 25 mcg tabletIndicatio ns:Vitamin D deficiency Take 2 tablets (50 mcg total) by mouth daily. 90 tablet 1 5 Active Additional Information Patient not taking.Reported on 06/10/2025 pantoprazole EC (PROTONIX) 40 MG tabletIndicatio ns:Oropharyngea l dysphagia,GERD without esophagitis Take 1 tablet (40 mg total) by mouth daily. 45 tablet 5 Active Additional Information Patient not taking.Reported on 06/10/2025 PREVIDENT 5000 PLUS 1.1 % Cream Active sertraline (ZOLOFT) 50 MG tabletIndicatio ns:MARCELINO (generalized anxiety disorder),PTSD (post-traumatic stress disorder) Take 2 tablets (100 mg total) by mouth daily. 60 tablet 5 5 Active vitamin D3 (CHOLECALCIFERO L) 1.25 mg capsuleIndicati ons:Vitamin D deficiency Take 1 capsule (50,000 Units total) by mouth once a week. 12 capsule Active sertraline (ZOLOFT) 50 MG tabletIndicatio ns:MARCELINO (generalized anxiety disorder),PTSD (post-traumatic stress disorder),Work stress Take 1 tablet (50 mg total) by mouth daily. 30 tablet 2 5 025 Discontin ued(Reord er) Active Problems Problem Noted Date Diagnosed Date Work stress 03/12/2025 At risk for sleep apnea 03/12/2025 Mild sleep apnea 03/12/2025 Vaginal itching 03/03/2025 Urticaria 03/03/2025 Superficial bruising of thigh 03/03/2025 Superficial bruising 03/03/2025 Pruritic condition 03/03/2025 Pharyngitis 03/03/2025 Otitis media 03/03/2025 Muscle strain 03/03/2025 Finger sprain 03/03/2025 Fever 03/03/2025 Fall 03/03/2025 Anxiety 03/03/2025 PTSD (post-traumatic stress disorder) 03/03/2025 COVID-19 03/03/2025 MARCELINO (generalized anxiety disorder) 12/23/2024 Major depression 12/23/2024 Vitamin D deficiency 12/15/2024 Iron deficiency anemia 04/27/2022 Menorrhagia 02/08/2022 Dysuria 12/27/2021 Epigastric pain 12/27/2021 Fatigue, unspecified type 12/27/2021 Acute vaginitis 08/17/2020 Pelvic and perineal pain 08/17/2020 Resolved Problems Problem Noted Date Diagnosed Date Resolved Date Blurry vision 07/01/2021 12/27/2021 Acute non intractable tension-type headache 07/01/2021 12/27/2021 Acute conjunctivitis of both eyes, unspecified acute conjunctivitis type 07/01/2021 Health care maintenance 04/25/2021 11/0 01/2021 Screening for malignant neoplasm of cervix 05/13/2020 10/22/2022 Encounters Date Type Department Care Team Description 06/13/2025 Results Follow-Up [facility] Family & Internal Medicine - [place] [address] [place] [address] Yusra Muñiz MD MAGNESIUM, VITAMIN B12 / FOLATE, VITAMIN D, 25 OH, Additional followed-up results: 3 06/10/2025 12:57 PM LEARNING ADMINISTRATOR - 06/10/2025 11:59 PM LEARNING ADMINISTRATOR Hospital Encounter [facility] [address] [place] [address] Yusra Muñiz MD Discharge Disposition: Home or Self Care (Routine Discharge) 06/10/2025 11:20 AM LEARNING ADMINISTRATOR Laboratory Only [facility] Internal [facility] [address] [place] [address] Yusra Muñiz MD 06/10/2025 11:00 AM LEARNING ADMINISTRATOR Office Visit [facility] Internal [address] [address] Yusra Muñiz MD Anxiety; Depression 06/10/2025 Travel 04/08/2025 Telephone [facility] Internal [address] [address] Yusra Muñiz MD Medication from Last 3 Months Immunizations Immunization Administration Dates Next Due Attenuvax Sc 2000,02/22/1995 [...] Alcohol Use Standard Drinks/Week Comments Not Currently 3.3 (1 standard drink = 0.6 oz p ure alcohol) Social PHQ-2 Answer Date Recorded Patient Health Questionnaire-2 Score 2 06/10/2025 Comments No Sex and Gender Information Value Date Recorded Sex Assigned at Female 10/22/2024 4:02 PM CDT Legal Sex Female 4:57 PM CDT Gender Identity Female 10/22/2024 4:02 PM CDT Sexual Orientation Not on file Last Filed Vital Signs Vital Sign Reading Time Taken Comments Blood Pressure 111/72 06/10/2025 10:53 AM LEARNING ADMINISTRATOR Pulse 57 06/10/2025 10:53 AM LEARNING ADMINISTRATOR Temperature 36.6 C (97.9 F) 06/10/2025 10:53 AM LEARNING ADMINISTRATOR Respiratory Rate 16 06/10/2025 10:53 AM LEARNING ADMINISTRATOR Oxygen Saturation 98% 06/10/2025 10:53 AM LEARNING ADMINISTRATOR Inhaled Oxygen Concentration - - Weight 71.2 kg (157 lb) 06/10/2025 10:53 AM LEARNING ADMINISTRATOR Height 170.2 cm (5' 7) 06/10/2025 10:53 AM LEARNING ADMINISTRATOR Body Mass Index 24.59 06/10/2025 10:53 AM LEARNING ADMINISTRATOR Plan of Treatment Upcoming Encounters Date Type Department Care Team (Late st Contact Info) Description 07/12/2025 8:40 AM LEARNING ADMINISTRATOR Office Visit [facility] Multispecialty Care - [address] [place] [address] Iain Velasquez DO [address] [place], [place] [address] [address] [place] [address] 12/13/2025 7:00 AM CDT Office Visit [facility] Family & Internal Medicine - [place] [address] [place] [address] Yusra Muñ[place] [address] [facility]. [address] [place] [address] Health Maintenance Due Date Last Done Comments DTaP, Tdap and Td Vaccines (10 - Td or Tdap) 05/28/2017 05/28/2007, 05/28/2007, 04/13/2005, Additional history exists Annual Physical 04/25/2022 04/25/2021 Cervical Cancer Screening Pap with HPV Testing (Age 30 to 64) Every 5 Years 2024 05/13/2020 COVID-19 Vaccine ( season) 2025 10/03/2020, 09/12/2020 Cervical Cancer Screening Pap Smear (Age 30 to 64) Every 3 Years 06/05/2025 06/05/2022 Influenza Adult (#1) 2026 05/12/2018 Postpon ed from 03/24/2025 (Patient Refused) Cervical Cancer Screening with HPV 06/08/2031 Postponed from 06/05/2025 (Going to Outside Clinic) Meningococcal Vaccine Aged Out 05/28/2007 No lucille yumiko eligible based on patient's age to complete this topic HPV Vaccines Completed 11/26/2007, 10/2007, 05/28/2007 Hepatitis B Vaccines Completed 12/23/2008, 07/01/2007, 05/28/2007 Hepatitis A Vaccines Aged Out 01/28/2018 No long er eligible based on patient's age to complete this topic Hepatitis C Completed 05/25/2024 PHQ-2 (Physician [place]) Completed 06/10/2025 Meningococcal B Vaccine Aged Out No l onger eligible based on patient's age to complete this topic Pneumococcal Vaccine: Pediatrics (0 to 5 Years) and At-Risk Patients (6 to 49 Years) Aged Out No longer eligible based on patient's age to complete this topic RSV Immunizations Under 20 Months Aged Out No longer eligible based on patient's age to complete this topic Procedures Procedure Name Priority Date/Time Associated Diagnosis Comments COLLECTION VENOUS BLOOD VENIPUNCTURE Routine 06/10/2025 11:18 AM LEARNING ADMINISTRATOR MARCELINO (generalized anxiety disorder) Vitamin D deficiency Dizziness Diabetes mellitus screening HC CBC AUTO W/AUTO DIFF Routine 06/10/2025 11:16 AM LEARNING ADMINISTRATOR MARCELINO (generalized anxiety disorder) COMPREHENSIVE METABOLIC PANEL Routine 06/10/2025 11:16 AM LEARNING ADMINISTRATOR MARCELINO (generalized anxiety disorder) TSH W/REFLEX Routine 06/10/2025 11:16 AM LEARNING ADMINISTRATOR MARCELINO (generalized anxiety disorder) VITAMIN D, 25 OH Routine 06/10/2025 11:1 6 AM LEARNING ADMINISTRATOR Vitamin D deficiency VITAMIN B12 / FOLATE Routine 06/10/2025 11:16 AM LEARNING ADMINISTRATOR MARCELINO (generalized anxiety disorder) MAGNESIUM Routine 06/10/2025 11:16 AM LEARNING ADMINISTRATOR Dizziness HEMOGLOBIN, GLYCOSYLATED Routine 06/10/2025 11:16 AM LEARNING ADMINISTRATOR Diabetes mellitus screening HEPATITIS C ANTIBODY Routine 05/25/2024 10:51 AM LEARNING ADMINISTRATOR Vaginal discharge Unprotected sex CYTOPATH CERV/VAG THIN LAYER Routine 06/05/2022 4:38 AM LEARNING ADMINISTRATOR OUTSIDE CYTOPATH CERV/VAG INTERPRET (PAP) 05/13/2020 from Last 3 Months or Most Recently Relevant to Health Maintenance Results * (ABNORMAL) VITAMIN D, 25 OH (06/10/2025 11:16 AM LEARNING ADMINISTRATOR) VITAMIN D 25 HYDROXY S/P/B 22(L) 30 - 100 NG/ML 06/10/2025 2:01 PM LEARNING ADMINISTRATOR [facility] Comment: INTERPRETATION DEFICIENT <20 INSUFFICIENT 20-29 SUFFICIENT 30-100 BLOOD VENOUS BLOOD SPECIMEN / Unknown 06/10/2025 11:16 AM LEARNING ADMINISTRATOR us Yusra Muñiz MD LABORATORY Final Result Performing Organization Address City/[facility]/ZIP Co de Phone Number [facility] [address] [place] [address], [place] [phone] * MAGNESIUM (06/10/2025 11:16 AM LEARNING ADMINISTRATOR) MAGNESIUM 2.0 1.8 - 2.4 MG/DL 06/10/2025 1:57 PM LEARNING ADMINISTRATOR [facility] BLOOD VENOUS BLOOD SPECIMEN / Unknown 06/10/2025 11:16 AM LEARNING ADMINISTRATOR us Yusra Muñiz MD LABORATORY Final Result Performing Organization Address [facility] Co de Phone Number [facility] [address] [place] [address], [place] [phone] * HEMOGLOBIN, GLYCOSYLATED (06/10/2025 11:16 AM LEARNING ADMINISTRATOR) HGB A1C 5.0 <5.7 % 06/14/2025 6:55 PM LEARNING ADMINISTRATOR [facility] Comment: INCREASED RISK OF DIABETES <5.7% NON-DIABETES 5.7-6.4% INCREASED RISK FOR FUTURE DIABETES > OR = 6.5 CONSISTENT WITH DIABETES STANDARDS OF MEDICAL CARE IN DIABETES-2010 DIABETES CARE, 33(SUPP 1): S1-S61,2010 ESTIMATED AVG GLUCOSE 97 mg/dL 06/14/2025 6:55 PM LEARNING ADMINISTRATOR [facility] BLOOD VENOUS BLOOD SPECIMEN / Unknown 06/10/2025 11:16 AM LEARNING ADMINISTRATOR us Yusra Muñiz MD LABORATORY Final Result Performing Organization Address City/[facility] Co de Phone Number [facility] [address] [place], [place] [address] [place] [address] * COMPREHENSIVE METABOLIC PANEL (06/10/2025 11:16 AM [facility] GLUCOSE 89 70 - 99 MG/DL 06/10/2025 1:57 PM [facility] BUN 13 7 - 18 MG/DL 06/10/2025 1:57 PM [facility] CREATININE S/P/B 0.67 0.55 - 1.02 MG/DL 06/10/2025 1:57 PM [facility] SODIUM S/P/B 139 136 - 145 MMOL/L 06/10/2025 1:57 PM [facility] POTASSIUM S/P/B 4.3 3.5 - 5.1 MMOL/L 06/10/2025 1:57 PM [facility] CHLORIDE S/P/B 101 100 - 108 MMOL/L 06/10/2025 1:57 PM [facility] CO2 28.6 21 - 32 MMOL/L 06/10/2025 1:57 PM [facility] CALCIUM S/P/B 9.3 8.5 - 10.1 MG/DL 06/10/2025 1:57 PM [facility] BILIRUBIN TOTAL S/P/B 0.4 0.2 - 1.2 MG/DL 06/10/2025 1:57 PM [facility] TOTAL PROTEIN S/P/B 7.8 6.4 - 8.2 G/DL 06/10/2025 1:57 PM [facility] ALBUMIN S/P/B 4.4 3.4 - 5.0 G/DL 06/10/2025 1:57 PM [facility] AST 17 15 - 37 U/L 06/10/2025 1:57 PM [facility] ALT 20 14 - 55 U/L 06/10/2025 1:57 PM [facility] ALKALINE PHOSPHATASE S/P/B 61 50 - 136 U/L 06/10/2025 1:57 PM [facility] ANION GAP 9.4 5 - 15 MMOL/L 06/10/2025 1:57 PM [facility] BUN CREATININE RATIO 19.4 6 - 26 06/10/2025 1:57 PM [facility] A/G RATIO 1.3 1.0 - 2.0 RATIO 06/10/2025 1:57 PM [facility] GFR ESTIMATE >90 >90 ML/MIN/1.7 3 M2 06/10/2025 1:57 PM [facility] Comment: NOTE: eGFR is not calculated for patients <18 years of age. This is an estimated GFR calculation using the new CKD EPI creatinine equation without race and so does not require a correction factor for race. This estimated GFR should not be used for calculating drug doses. BLOOD VENOUS BLOOD SPECIMEN / Unknown 06/10/2025 11:16 AM LEARNING ADMINISTRATOR Yusra Muñiz MD LABORATORY Final Result [facility] [address] [place] [address], * CBC W/DIFF (06/10/2025 11:16 AM LEARNING ADMINISTRATOR) WBC 5.28 4.4 - 11.0 x10'3/uL 06/10/2025 1:18 PM [facility] RBC 4.57 4.50 - 5.10 x10'6/uL 06/10/2025 1:18 PM [facility] HGB 13.4 12.3 - 15.3 G/DL 06/10/2025 1:18 PM [facility] HCT 40.3 35.9 - 44.6 % 06/10/2025 1:18 PM [facility] MCV 88.2 80.0 - 96.0 FL 06/10/2025 1:18 PM [facility] MCH 29.3 25.3 - 30.9 PG 06/10/2025 1:18 PM [facility] MCHC 33.3 31.0 - 34.1 G/DL 06/10/2025 1:18 PM [facility] RDW 12.8 12.4 - 15.1 % 06/10/2025 1:18 PM [facility] PLT 247 151 - 353 x10'3/uL 06/10/2025 1:18 PM [facility] MPV 11.1 9.6 - 12.0 FL 06/10/2025 1:18 PM [facility] RBC MORPHOLOGY NORMAL 06/10/2025 1:18 PM [facility] PLT MORPH. NORMAL 06/10/2025 1:18 PM [facility] WBC MORPHOLOGY NORMAL 06/10/2025 1:18 PM [facility] LYMPHOCYTES % 42.2 15.8 - 45.0 % 06/10/2025 1:18 PM [facility] NEUTROPHILS % 44.2 42.1 - 71.9 % 06/10/2025 1:18 PM [facility] MONOCYTES % 10.8 5.7 - 12.5 % 06/10/2025 1:18 PM [facility] EOSINOPHILS 1.7 0.0 - 5.6 % 06/10/2025 1:18 PM [facility] BASOPHILS 0.9 0.0 - 1.3 % 06/10/2025 1:18 PM [facility] ABS. NEUTROPHILS 2.33 1.40 - 6.00 x10'3/uL 06/10/2025 1:18 PM LEARNING ADMINISTRATOR [facility] IMMATURE GRANS % 0.2 0.0 - 0.5 % 06/10/2025 1:18 PM LEARNING ADMINISTRATOR [facility] ABS. LYMPHOCYTES 2.23 0.80 - 4.70 x10'3/uL 06/10/2025 1:18 PM LEARNING ADMINISTRATOR [facility] BLOOD VENOUS BLOOD SPECIMEN / Unknown 06/10/2025 11:16 AM LEARNING ADMINISTRATOR us Yusra Muñiz MD LABORATORY Final Result Performing Organization Address City/[facility]/ZIP Co de Phone Number [facility] [address] [place] [address], [place] [phone] * VITAMIN B12 / FOLATE (06/10/2025 11:16 AM LEARNING ADMINISTRATOR) VITAMIN B12 S/P/B 414 193 - 986 PG/ML 06/10/2025 2:26 PM LEARNING ADMINISTRATOR [facility] FOLATE 13.8 8.6 - 58.9 NG/ML 06/10/2025 2:26 PM LEARNING ADMINISTRATOR [facility] BLOOD VENOUS BLOOD SPECIMEN / Unknown 06/10/2025 11:16 AM LEARNING ADMINISTRATOR us Yusra Muñiz MD LABORATORY Final Result [facility] [address] [place] [address], [place] [phone] * TSH W/REFLEX (06/10/2025 11:16 AM LEARNING ADMINISTRATOR) TSH 0.986 0.358 - 3.74 uIU/ML 06/10/2025 1:57 PM LEARNING ADMINISTRATOR [facility] Comment: HIGH DOSES OF BIOTIN MAY INTERFERE WITH THIS TEST RESULT. CORRELATION TO CLINICAL HISTORY AND PRESENTATION RECOMMENDED. FREE T4 NOT INDICATED BLOOD VENOUS BLOOD SPECIMEN / Unknown 06/10/2025 11:16 AM LEARNING ADMINISTRATOR Yusra Muñiz MD LABORATORY Final Result [facility] [address] [place] [address], [place] [phone] * HEPATITIS C AB ([facility] ONLY) (05/25/2024 10:51 AM LEARNING ADMINISTRATOR) HEPATITIS C AB NON-REACTI VE NON-REACTI VE 05/25/2024 8:25 PM LEARNING ADMINISTRATOR [facility] 05/25/2024 10:5 1 AM LEARNING ADMINISTRATOR Yusra Muñiz MD LABORATORY Final Result Performing Organization Address City/[facility]/ZIP Co de Phone Number [facility] [address] [place] [address], [place] [phone] * Cytopath Cerv/Vag Thin Layer (06/05/2022 4:38 AM LEARNING ADMINISTRATOR) THIN PREP PAP [address] [address] Department of Pathology Pathology Report CERVICAL/VAGINAL PAP SMEAR REPORT Name: ALEYDA GONZALES Age: 10 1995 (Age: 27) Location: [facility] Sex: F Collected Date: 06/05/2022 [facility] #: [id number] Date Received: 06/07/2022 Date Reported: 06/11/2022 Provider: [...] is not effective in detecting cervical adenocarcinoma. [facility] 06/05/2022 4:38 AM LEARNING ADMINISTRATOR 06/07/2022 4:38 AM LEARNING ADMINISTRATOR Comment:CERVICAL/ENDOCERVICA L Yusra Muñiz MD PATHOLOGY/CYTOLOGY ORDERABLES Final Result [facility] [address] [id number], * PAP SMEAR WITH HPV (05/13/2020) 05/13/2020 [facility] Scanned SCANNING Final Resu lt from Last 3 Months or Most Recently Relevant to Health Maintenance Insurance MEDICAID Care Teams Metal Bonder Relationship Specialty Start Date [place] Date Yusra Muñiz [place] [address] [address] [place] [address] PCP - General FAMILY PRACTICE 04/19/22
--- OUTSIDE RECORDS SUMMARY | 2025-06-18 00:18 | XMS_ITS | Clinical Summary ---
Author Organization [facility] Address [address] [place] [address] Care Team Providers Care Automotive Quality Manager Name Role Phone Yane Muñiz MD Primary Care Provider [phone] Allergies No known active allergies Medications fluticasone [...] on file Legal Sex Female 8:09 PM AGED OR DISABLED CARE WORKER Gender Identity Not on file Sexual Orientation Not on file Last Filed Vital Signs Vital Sign Reading Time Taken Comments Blood Pressure 117/71 08/23/2023 2:00 PM AGED OR DISABLED CARE WORKER Pulse 80 08/23/2023 2:00 PM AGED OR DISABLED CARE WORKER Temperature 36.9 C (98.4 F) 08/23/2023 12:00 PM AGED OR DISABLED CARE WORKER Respiratory Rate 15 08/23/2023 2:00 PM AGED OR DISABLED CARE WORKER Oxygen Saturation 99% 08/23/2023 2:00 PM AGED OR DISABLED CARE WORKER Inhaled Oxygen Concentration - - Weight 68.2 kg (150 lb 6.4 oz) 08/23/2023 7:40 A M AGED OR DISABLED CARE WORKER Height 165.1 cm (5' 5) 08/23/2023 7:40 AM AGED OR DISABLED CARE WORKER Body Mass Index 25.03 08/23/2023 7:40 AM AGED OR DISABLED CARE WORKER Plan of Treatment Health Maintenance Due Date Last Done Comments Cervical Cancer Screening 1995 Depression Screening 1994 Hepatitis C Screening 1994 Varicella Vaccines (1 of 2 - 13+ 2-dose series) 2007 Regular Well Visit/Exam 18-64 2012 DTaP/Tdap/Td Vaccine (9 - Td or Tdap) 05/28/2017 05/28/2007, 05/28/2007, 04/13/2005, Additional history exists Covid-19 Vaccine ( season) 2025 10/03/2020, 09/12/2020 Influenza Vaccine (#1) 2025 05/12/2018, 2017 HPV Vaccines Completed 11/26/2007, 10/2007, 05/28/2007 Hepatitis B Screening Completed 12/23/2008 , 07/01/2007, 05/28/2007 Pneumococcal vaccine <65 Aged Out No longer eligible based on patient's age to complete this topic Insurance [facility] Care Teams Automotive Quality Manager Relationship Specialty Start Date End Date Yane Muñiz [place] [address] [address] [place] [address] PCP - General Family Medicine 08/13/23
--- OUTSIDE RECORDS SUMMARY | 2025-06-18 00:18 | XMS_ITS | Encounter Summary ---
Author Organization [facility] Address [address] [place] [address] Care Team Providers Care Batch Unit Treater Name Role Phone Yane Muñiz MD Primary Care Provider [phone] Encounter Details Date Type Department Care Team (Late st Contact Info) Description 09/23/2024 [email or web address] Message Enc [facility] Family & Internal Medicine [address] [address] [facility] Provider Information Social History Tobacco Use Types Packs/Day Years [...] PM CDT Sexual Orientation Not on file documented as of this encounter Plan of Treatment Upcoming Encounters Date Type Department Care Team (Late st Contact Info) Description 07/12/2025 8:40 AM COST CONTROLLER Office Visit [facility] Multispecialty Care - [facility] [address] [place] [address] Iain Velasquez DO [address] [place] [address] 12/13/2025 7:00 AM CDT Office Visit [facility] Family & Internal Medicine - [place] [address] [place] [address] Yane Muñiz [place] [address] [facility]. [address] [place] [address] documented as of this encounter Visit Diagnoses Not on filedocumented in this encounter Additional Health Concerns Assessment Noted Time PHQ-9 Depression Total Score: 14 023 9:12 AM COST CONTROLLER documented as of this encounter Care Teams Batch Unit Treater Relationship Specialty Start Date End Date Yane Muñiz [place] [id number] [place] [address]. [address] [place] [address] PCP - General FAMILY PRACTICE 04/19/22 documented as of this encounter
--- OUTSIDE RECORDS SUMMARY | 2025-06-18 00:18 | XMS_ITS | Encounter Summary ---
Author Organization [facility] Address [address] [place] [address] Care Team Providers Care Wheel Grinder Name Role Phone Yane Muñiz MD Primary Care Provider [phone] Encounter Details Date Type Department Care Team (Late st Contact Info) Description 09/11/2022 [employer] Message Enc [facility] Medical [facility] Family & Internal Medicine [address] [address] [facility] Provider results Social History Tobacco Use Types [...] Coronavirus/COVID-19? No / Unsure 08/30/2022 7:00 AM AUTOMOBILE RACER documented as of this encounter Plan of Treatment Upcoming Encounters Date Type Department Care Team (Late st Contact Info) Description 07/12/2025 8:40 AM AUTOMOBILE RACER Office Visit [facility] Multispecialty Care - [address] [place] [address] Iain Velasquez, DO [address] [facility] [address] [place] [address] 12/13/2025 7:00 AM CDT Office Visit [facility] Medical Group Family & Internal Medicine - [place] [address] [place] [address] Yane Muñ[place] [address] [facility] [address] [place] [address] documented as of this encounter Visit Diagnoses Not on filedocumented in this encounter Additional Health Concerns Assessment Noted Time PHQ-9 Depression Total Score: 14 023 9:12 AM AUTOMOBILE RACER documented as of this encounter Care Teams Wheel Grinder Relationship Specialty Start Date End Date Yane Muñiz [place] [id number] [facility] [address] [place] [address] PCP - General FAMILY PRACTICE 04/19/22 documented as of this encounter
--- OUTSIDE RECORDS SUMMARY | 2025-06-18 00:18 | XMS_ITS | Encounter Summary ---
Author Organization [facility] Address [address] [place] [address] Care Team Providers Care Dry Finisher Name Role Phone Yane uMñiz MD Primary Care Provider [phone] Encounter Details Date Type Department Care Team (Late st Contact Info) Description 06/13/2025 Results Follow-Up [facility] Family & Internal Medicine [address] [address] Yane Muñiz MD [address] [place] [address] [address] [place] [address] MAGNESIUM, VITAMIN B12 / FOLATE, VITAMIN D, 25 OH, Additional followed-up results: 3 Social History Tobacco Use Types Packs/Day Years [...] st Contact Info) Description 07/12/2025 8:40 AM TUBING TESTER Office Visit [facility] Multispecialty Care - [address] [place] [address] Iain Velasquez, DO 3 [facility] [address] [place] [address] 12/13/2025 7:00 AM CDT Office Visit [facility] Medical Group Family & Internal Medicine - [place] [address] [place] [phone] Yane Muñiz [place] [address] [facility]. [address] [place] [address] documented as of this encounter Visit Diagnoses Diagnosis Vitamin D deficiency- Primary documented in this encounter Additional Health Concerns Assessment Noted Time PHQ-9 Depression Total Score: 16 025 11:17 AM TUBING TESTER documented as of this encounter Care Teams Dry Finisher Relationship Specialty Start Date End Date Yane Muñiz [place] [address] [facility]. [address] [place] [address] PCP - General FAMILY PRACTICE 04/19/22 documented as of this encounter
--- OUTSIDE RECORDS SUMMARY | 2025-06-18 00:18 | XMS_ITS | Data Portability ---
Author Organization [employer] , [email or web address] Address [address] [place] [address] Care Team Providers Care Ski Lift Attendant Name Role Phone [facility] Title Assistant Assessment No assessment recorded. Plan of Treatment Reminders Order Date Submit Date Provider Last Modified By Organization Details Last Modified Time Details Appointments None recorded. Lab TSH + free T4, serum 2023 024 [employer], [address] [place] [address], [address], 4 12:31:26 lh + FSH, serum 2023 024 [employer] [facility], [address] [place] [address], [address], 4 12:31:28 estradiol, serum 2023 024 [employer], [address] [place], [address], 4 11:02:40 Referral None recorded. Procedures None recorded. Surgeries None recorded. Imaging US, transvagina l 2023 024 HUI Not available 02:19:41 MAMMO, diagnostic, digital, bilateral - Bilateral breast pain. small lump size of quarter at 3 o'clock on right breast. Hx of lumpectomy on right breast. [email or web address] (Central Scheduling), [address] [place], [address], 4 12:23:13 US, breast - Bilateral breast pain. small lump size of quarter at 3 o'clock on right breast. Hx of lumpectomy on right breast. 2023 024 [email or web address] [facility] (Central Scheduling), [address], [place], [address], 4 15:45:28 Medication Orders None recorded. Patient [...] is recom tessa d (orde r code [id number] ). Pleas e note: patie nts being [...] s. [facility] order code [id number] -Estr adiol , Ultra sensi tive LC/MS /MS demon mohindert es negli gible cross react ivity with eunice vinesn t. NO COLLE CTION DATE RECEI FRANK. WE HAVE USED THE DATE THE SPECI MEN WAS RECEI FRANK BY THIS LABOR ATORY THE COLLE CTION DATE. IF THIS IS INCOR RECT, PLEAS E CONTA CT CLIEN T SERVI LORENZA. PHONE NUMBE R: [phone] [phone] 78 Not Available [facility] [address] [place], [address], 05/01/2024 11:02:40 05/13/20 24 05/12/2024 ANTI- MULLE [...] NUMBE R: 866.6 97.83 78 Not Available [facility] [address] [place], [place] [address], [address], 05/13/2024 00:43:00 04/30/20 24 05/01/2024 TSH W/ T4, FREE TSH 1.08 mIU/L 0.55 - 4.78 normal Refer ence Range Femal e aged 18-Ad ult: 0.55- 4.78 Pregn xi Refer ence Range s First Trime ster 0.26- 2.66 Secon d Trime ster 0.55- 2.73 Third Trime ster 0.43- 2.91 Not Available [place], [address], 05/01/2024 12:31:26 04/30/20 24 05/01/2024 TSH W/ T4, FREE T4, free 1.15 NG/dL 0.89 - 1.76 normal Not Available [employer], [address], 05/01/2024 12:31:26 04/30/20 24 05/01/2024 FSH AND [...] : 23.0- 116.6 mIU/m L Not Available [employer], [address], 05/01/2024 12:31:28 04/30/20 24 05/01/2024 FSH AND [...] anthony: 0.7-5 .6 mIU/m L Not Available [employer], [address], 05/01/2024 12:31:28 05/08/20 24 05/09/2024 COMPR EHENS MARI METAB OLIC PANEL sodium 141 mmol/ L 136 - 145 normal Not Available [employer], [address], 05/09/2024 11:05:50 05/08/20 24 05/09/2024 COMPR EHENS MARI METAB OLIC PANEL potassium 3.3 mmol/ L 3.5 - 5.1 low Not Available [employer], [address], 05/09/2024 11:05:50 05/08/20 24 05/09/2024 COMPR EHENS MARI METAB OLIC PANEL chloride 103 mmol/ L 98 - 107 normal Not Available [address], [address], 05/09/2024 11:05:50 05/08/20 24 05/09/2024 COMPR EHENS MARI METAB OLIC PANEL glucose 82 mg/dL 74 - 106 normal Not Available [address], [address], 05/09/2024 11:05:50 05/08/20 24 05/09/2024 COMPR EHENS MARI METAB OLIC PANEL carbon dioxide 30 mmol/ L 20 - 32 normal Not Available [address], [address], 05/09/2024 11:05:50 05/08/20 24 05/09/2024 COMPR EHENS MARI METAB OLIC PANEL calcium 9.1 mg/dL 8.5 - 10.1 normal Not Available [address], [address], 05/09/2024 11:05:50 05/08/20 24 05/09/2024 COMPR EHENS MARI METAB OLIC PANEL creatinine 0.54 mg/dL 0.60 - 1.00 low Not Available [address], [address], 05/09/2024 11:05:50 05/08/20 24 05/09/2024 COMPR EHENS MARI METAB OLIC PANEL eGFR 127 mL/mi n/1.7 3m2 >60 normal The eGFR is based on the CKD-E PI 2020 equat ion. To calcu late the new eGFR from a previ ous Creat inine or Cysta tin C resul t, go to https ://pankaj stevens.mame lugo/pr sachin ornelasal s/marcyo qi/gf r_cal culat or Not Available [address], [address], 05/09/2024 11:05:50 05/08/20 24 05/09/2024 COMPR EHENS MARI METAB OLIC PANEL AST 9 U/L 15 - 37 low Not Available [address], [address], 05/09/2024 11:05:50 05/08/20 24 05/09/2024 COMPR EHENS MARI METAB OLIC PANEL ALT 19 U/L 14 - 59 normal Not Available [address], [address], 05/09/2024 11:05:50 05/08/20 24 05/09/2024 COMPR EHENS MARI METAB OLIC PANEL alk phos 60 U/L 46 - 116 normal Not Available [address], [address], 05/09/2024 11:05:50 05/08/20 24 05/09/2024 COMPR EHENS MARI METAB OLIC PANEL albumin 4.0 g/dL 3.4 - 5.0 normal Not Available [address], [address], 05/09/2024 11:05:50 05/08/20 24 05/09/2024 COMPR EHENS MARI METAB OLIC PANEL protein, total 7.7 g/dL 6.4 - 8.2 normal Not Available [address], [address], 05/09/2024 11:05:50 05/08/20 24 05/09/2024 COMPR EHENS MARI METAB OLIC PANEL bilirubin, total 0.4 mg/dL 0.2 - 1.0 normal Not Available [address], [address], 05/09/2024 11:05:50 05/08/20 24 05/09/2024 COMPR EHENS MARI METAB OLIC PANEL urea nitrogen (BUN) 10 mg/dL 7 - 18 normal Not Available [facility] Ernie [address] [place] [address], [address], 05/09/2024 11:05:50 05/08/2005/09/2024 CBC (INCL UDES DIFF/ PLT) WBC 7.3 thous and/u L 4.0 - 9.8 normal Not Available [address], [address], 05/09/2024 12:49:08 05/08/2005/09/2024 CBC (INCL UDES DIFF/ PLT) RBC 4.6 max on/uL 3.9 - 4.9 normal Not Available [address], [address], 05/09/2024 12:49:08 05/08/2005/09/2024 CBC (INCL UDES DIFF/ PLT) hemoglobin 13.4 g/dL 11.8 - 14.8 normal Not Available [address], [address], 05/09/2024 12:49:08 05/08/2005/09/2024 CBC (INCL UDES DIFF/ PLT) hematocrit 40.2 % 35.5 - 44.0 normal Not Available [address], [address], 05/09/2024 12:49:08 05/08/2005/09/2024 CBC (INCL UDES DIFF/ PLT) MCV 88.2 fL 82.0 - 99.0 normal Not Available [address], [address], 05/09/2024 12:49:08 05/08/2005/09/2024 CBC (INCL UDES DIFF/ PLT) MCH 29.4 pg 27.2 - 32.6 normal Not Available [address], [address], 05/09/2024 12:49:08 05/08/20 24 05/09/2024 CBC (INCL UDES DIFF/ PLT) MCHC 33.3 g/dL 31.5 - 35.5 normal Not Available [address], [address], 05/09/2024 12:49:08 05/08/20 24 05/09/2024 CBC (INCL UDES DIFF/ PLT) RDW-CV 12.7 % 11.5 - 14.5 normal Not Available [address], [address], 05/09/2024 12:49:08 05/08/2005/09/2024 CBC (INCL UDES DIFF/ PLT) platelet 319 thous and/u L 140 - 350 normal Not Available [address], [address], 05/09/2024 12:49:08 05/08/20 24 05/09/2024 CBC (INCL UDES DIFF/ PLT) MPV 10.8 fL 9.3 - 12.4 normal Not Available [address], [address], 05/09/2024 12:49:08 05/08/20 24 05/09/2024 CBC (INCL UDES DIFF/ PLT) absolute neutrophil 3.88 thous and/u L 1.90 - 7.00 normal Not Available [address], [address], 05/09/2024 12:49:08 05/08/20 24 05/09/2024 CBC (INCL UDES DIFF/ PLT) absolute lymphocyte 2.63 thous and/u L 0.70 - 4.50 normal Not Available [address], [address], 05/09/2024 12:49:08 05/08/20 24 05/09/2024 CBC (INCL UDES DIFF/ PLT) absolute monocyte 0.63 thous and/u L 0.10 - 1.30 normal Not Available [address], [address], 05/09/2024 12:49:08 05/08/20 24 05/09/2024 CBC (INCL UDES DIFF/ PLT) absolute eosinophil 0.08 thous and/u L <0.70 normal Not Available [address], [address], 05/09/2024 12:49:08 05/08/20 24 05/09/2024 CBC (INCL UDES DIFF/ PLT) absolute basophil 0.03 thous and/u L <0.20 normal Not Available [address], [address], 05/09/2024 12:49:08 05/08/20 24 05/09/2024 CBC (INCL UDES DIFF/ PLT) absolute immature granulocyte 0.01 thous and/u L <0.03 normal Not Available [address], [address], 05/09/2024 12:49:08 07/12/19 24 07/12/2023 , trans vagin al No observ ation record ed. [email or web address] [address], [place], [address], 07/13/2023 02:19:42 Result Notes None recorded. Problems Name Problem SNOMED Code Status Onset Date Resolution Date Notes Provider Name and Address Organization Details Recorded Time Clinical finding Completed 201912/29/2021 Encounter for surveilla nce of injectabl e contracep tive; Progress: Stable Added By: Priya Torre Add to Current Problems: YES ProblemSt atus: Current Karol Rojas CNM [address] [facility], [place], [address], [facility] IV 2 07:10:00 Sampling of vagina for Papanico laou smear Completed 201912/29/2021 Encounter for gynecolog ical examinati on (general) (routine) without abnormal findings; Progress: Stable Added By: Azul Chopra Add to Current Problems: YES ProblemSt atus: Current Karol Rojas CNM [address] [place], [address], [facility] IV 2 07:10:00 Screenin g for malignan t neoplasm of cervix Completed 201912/29/2021 Encounter for screening for malignant neoplasm of cervix; Progress: Stable Added By: Azul Chopra Add to Current Problems: YES ProblemSt atus: Current Karol Rojas CNM [address] [place], [address], [facility] IV 2 07:10:00 Pelvic and perineal pain [id number] Completed 202012/29/2021 Pelvic and perineal pain; Progress: Stable Added By: Angelique Escalera Add to Current Problems: YES ProblemSt atus: Current Karol Rojas CNM [address] [place], [address], [facility] IV 2 07:10:00 Acute vaginiti s [id number] Completed 202012/29/2021 Acute vaginitis ; Progress: Stable Added By: Tawnya Sawyer Add to Current Problems: YES ProblemSt atus: Current Karol Rojas CNM [address] [place], [address], [facility] IV 2 07:10:00 Dysuria [id number] Completed 202012/29/2021 Dysuria; Progress: Stable Added By: Angelique Escalera Add to Current Problems: YES ProblemSt atus: Current Karol Rojas CNM [address] [place], [address], [facility] IV 2 07:10:00 Menorrha yana [id number] Completed 202107/03/2023 Sarah klein, [place] - [facility] IV 4 11:10:31 Problem Notes None recorded. Procedures Surgical History Date Name Laterality Status Provider Name and Address Organization Details Recorded Time 08/23/19 24 laparoscopy completed Kathya Elias MD [address] [place], [address], [facility] [employer] IV 09/10/2023 13:16:13 08/23/19 24 Hysteroscopy ablation completed Kathya Elias MD [address] [place], [address], [facility] [employer] [facility] 09/10/2023 13:16:42 04/24/20 23 Date of Last Pap Smear completed Kelvin Millan [facility] [employer] [facility] 04/30/2024 15:32:37 07/12/19 23 Paragard IUD Removal completed Karol Rojas CNM [address] [place], [address], [facility] [facility] 07/12/2022 17:59:17 08/24/19 22 IUD Insertion completed ROBBIE Grant [address] [place], [address], [facility] 08/23/2021 16:08:38 biopsy of breast completed Yeny Anderson [facility] [employer] [facility] 06/09/2021 23:23:49 Imaging Results None recorded. Procedure Notes None recorded. Medical Equipment None [...] 150 mg/mL intramus cular Suspensi on RxNorm: [id number] Allow Substitu tion: True Refill Denied: No [...] e 08/17 completed medroxyP [place] one RxNorm: [id number] Allow Substitu tion: False Refill Denied: No Refill DateOccu rred: 05/13/20 20 Edited by: Angelique Daniels ) on 08/17/19 21 Stopped by: ezra Escalera, Angelique ) on 08/17/19 21 Not Available Not [...] index (BMI) Body weight Body temperature Systolic And Diastolic Provider Name and Address Organization Details Last Updated DateTime 07/03/2023 162.56 cm 26.3 kg/m2 00242.3 5 g 97.5 [degF] 120/62 mm[Hg] Sarah Vergara [facility] [facility] 11:09:32 Date Recorded Body height Body mass index (BMI) Body weight Systolic And Diastolic Provider Name and Address Organization Details Last Updated DateTime 07/09/2023 162.56 cm 25.7 kg/m2 23089.86 g 116/70 mm[Hg] Priya Giraldo [facility] [employer] [facility] 07/09/2023 16:39:00 Date Recorded Body height Provider Name an d Address Organization Details Last Updated DateTime 07/12/2023 162.56 cm Priya Giraldo [facility] [employer] [facility] IV 07/12/2023 14:09:54 Date Recorded Body height Body mass index (BMI) Body weight Systolic And Diastolic Provider Name and Address Organization Details Last Updated DateTime 09/10/2023 162.56 cm 26.4 kg/m2 54898.22 g 96/52 mm[Hg] Racquel Lauren [facility] [employer] [facility] 09/10/2023 12:38:50 Date Recorded Body height Body mass index (BMI) Body weight Body temperature Systolic And Diastolic Provider Name and Address Organization Details Last Updated DateTime 04/30/2024 162.56 cm 26.8 kg/m2 53131.1 3 g 97.8 [degF] 104/70 mm[Hg] Gauravcruzito Millan [facility] [employer] IV 15:29:27 Social History Question Answer Notes LastModified by Organizat ion Details LastModified Time Tobacco Smoking Status Never Smoker Alize Urbano latoya [facility] [facility] 01/02/2022 11:35:51 Are You Blind Or Do You Have Difficulty Seeing? No [email or web address] Information not available 01/02/2022 Are You Deaf Or Do You Have Serious Difficulty Hearing? No Information not available 01/02/2022 What Type Of Diet Are You Following? REGULAR [email or web address] Information not available 04/24/2023 How Many Children Do You Have? 2 [email or web address] Information not available 01/02/2022 What Is Your Relationship Status? Information not available 06/09/2021 Are You Sexually Active? Yes Information not available 06/09/2021 Sex: Unknown Functional Status Question Answer Note LastModified by Organizat ion Details LastModified Time Do you use any illicit or recreational drugs? No [email or web address] Information not available 01/02/2022 Do you or have you ever used any other forms of tobacco or nicotine? No [email or web address] Information not available 01/02/2022 What is your level of alcohol consumption? Occasional [email or web address] Information not available 01/02/2022 What is your exercise level? None [email or web address] Information not available 01/02/2022 Mental Status None recorded. Family History Relationship Description Onset Age of this Age Resolved Age Notes LastModified by Organization Details LastModified Time Maternal Aunt Malignant neoplasm of breast [email or web address] Not available 05/24 23:19:31 Medical History Condition Response Other Cancer N High Blood Pressure N Colon Cancer N Cytomegalovirus N Hyperthyroidism N MRSA N Breast Cancer N Herpes (HSV) N Blood Transfusion N Lung Cancer N Depression N Hypothyroidism N Incontinence N Panic Attacks N Neurological Disorder N Deep Vein Thrombosis N Anxiety Disorder N Autoimmune disease N Arthritis N Tuberculosis/Positive PPD N Shingles N Polycystic Ovarian Syndrome N Cervical Cancer N Hematuria N Chlamydia N Stroke N Varicosities N Seasonal allergies N Crohn's Disease N Alzheimer's/Dementia N COPD/Emphysema N Endometriosis N HPV/Genital Warts N IBS (Irritable Bowel Syndrome) N History of Abnormal Pap N High Cholesterol N Liver Disease N Kidney Infection N Fibromyalgia N Ulcer N Kidney Disease N HIV N Gallbladder disease N Sickle Cell Disease/Trait N Von Willebrand disease N ADD/ADHD N Eating Disorder N Anemia N Diabetes Mellitus (non-insulin dependent ) N Multiple Sclerosis N Ovarian Problems N Gonorrhea N Frequent Urinary Tract infections N Osteopenia N Headaches/migraines N GERD (reflux) N Ovarian Cancer N Diabetes (insulin dependent) N Seizures/Epilepsy N Fibroids N Asthma N Heart Attack N Lupus N Endometrial Cancer N Rubella [...] Diagnosis SNOMED-CT Code Diagnosis ICD10 Code Diagnosis IMO Codes Diagnosis Note [id number] ROBBIE Grant [address] [address] 06/12/2021 10:00:46 06/27/2021 13:27:50 Contraception care [id number] Z30.09 Patient case to order Paragard IUD initiated. [id number] ROBBIE Grant [facility] [address] [place] [address] 08/23/2021 15:35:07 08/24/2021 15:35:33 Insertion of intrauterine contraceptive device 86274426 Z30.430 - Risks of abnormal bleeding, uterine [...] placement. F/U if problems, questions, or concerns. [id number] Karol Rojas CNM [address] [address] 01/02/2022 10:28:04 01/02/2022 20:51:34 Gynecologic examination 35772398 Z01.419 26 y.o. here for annual exam. - Pap up to date from 2019 - NILM- STI testing: declines- Contracept ion: paraguard - periods are heavy but regular- Family h/o breast cancer _none- Depression screen NEG- BMI counseling , diet and exercise reviewed- STI prevention discussed- Dietary supplement s: multivitam in, Vit D, fish oil- RTO for annual or PRN Depression screening 171 044154 Z13.31 [id number] Karol Rojas CNM [address] [address] 02/08/2022 11:23:47 02/08/2022 14:15:40 Menorrhagia 035751573 N92.0 Still bleeding heavily with cycle - clots and needing to use double protection . Has paraguard and does not want hormones to control bleeding. TXA discussed and informed for short time treatment at this time. May want to consider hormonal therapy in the future. Pt would like to try TXA for now. F/u in 3 months. [id number] Karol Rojas CNM [address] [address] 07/12/2022 17:01:08 07/12/2022 18:23:23 Removal of intrauterine device 57827796 Z30.432 IUD removed intact. Pt continues to have heavy bleeding w/IUD and wants to try CHC. Initial pr escription of oral contraception 165362088 Z30.011 COUNSELING was provided today regarding the [...] contraindi cations to EMY use were identified [id number] DAISY ARMIJO [facility] [address] [place] [address] 07/03/2023 10:54:13 07/03/2023 17:21:19 Pain of breast 07636115 N64.4 Pt comes in today for Breast [...] mmatory. Discussed complement dona therapy of Evening Hustle oil- up to 3,000 mg daily for 2 weeks and beyond if it helps.Will send for bilateral mammo/US at [facility]. Breast lump 23865900 N63 .0 Pt educated on exam findings, and discussed recommenda tion for R breast U/S.Patien t has hx of right lumpectomy .PE notable for small lump size of quarter at 3 o'clock on right breast.Fur ther POC pending imaging results. Pt states understand ing of POC. 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 Women who desire more children are not given ablations [id number] Kathya Elias MD [address] [address] 09/10/2023 11:26:28 09/10/2023 13:20:30 Postoperative visit 485517419 Z09 status post lsc salpingect omies and hysterosco py with ablation, doing wellAsked to follow up in 3-4 months to follow up ablation results [id number] MAGALIS OWENS, TONYA [address] [address] 04/30/2024 15:21:13 04/30/2024 16:56:49 Pain in pelvis 17427286 R10.2 [id number] Ms. Gonzales, devi 29 yo presents to clinic with c/o [...] hemorrhoid s. Discussed trying warm compresses . POCreturn for an USlabs todaywill discuss lab results after US & see if perineum is any better at next visit. Erasmo ponce thirty minutes spent with patient in consultati on (>50% face-to-fa ce). Patient labs and notes were reviewed. Patient questions were answered. Additional patient care was coordinate d. [place] 402649502 R23.2 [id number] Excessive sweating 26012 005 R61 43491 Health Concerns Section Related Observation LastModified by Organization Detai ls LastModified Time None Recorded Concern Status LastModified by Organization Details LastModified Time None Recorded Advance Directives Directive None Recorded Payers Insurance Date Sequence Insurance Name Policy Number Policy Puga Covered Member ID Puga Member ID Guarantor Name 05/12/2024 1 [facility] (MEDICAID HMO) [id number] [facility] [id number] [facility] Notes Date Note Type Note Provider Name and Address Organization Details Recorded Time 4 text/html Breast PainReported by PatientHPIFor associated symptoms, patient reportsnipple dischargeandsore nipplesbut reportsno fever,no chills,no skin redness,no chest pain, andno breast lump. For location, patient reportsright,left, andat the nipple(both breast, left breast more painful). For onset/timing, patient reports2-4 weeks. For duration, patient reportsconstant. For quality, patient reportssharpandburning (nipple area). For severity, patient reportspain level 3/10. For context, patient reportssexually active,family history of breast cancer, andlumpectomy. For modifying factors, patient reportstouch. HAMILTON LEOS, [facility] [address] [facility], [place], [address], [facility] [employer] IV 07/03/2023 11:39:06 4 text/html ROS as noted in the HPI Patient is here to discuss possible ablation [...] but now is bleeding too frequently Kathya Elais MD [address] [place] [address], [phone], [employer] IV 07/09/2023 20:07:19 4 text/html ROS as noted in the HPI Aleyda returns for work up for menorrhagia including ultrasound today. She has tried both ocp and Mirena but have not been successful at ameliorating symptomShe reports that she has completed her family, does not want any further children.her accompanies her today Kathya Elias MD [address] [place] [address], [address], [employer] IV 07/12/2023 15:03:46 4 text/html Aleyda comes in for post op check from her tubal sterilization/bilateral salpingectomies and endometrial ablation done 08/23/23.She reports having had some gas pain the first day after procedure. no issues with cramping. incisions are doing fine.She is still having a scant discharge, currently bl tinged Kathya Elias MD [address] [place] [address], [place], [address], [employer] IV 09/10/2023 13:19:51 4 text/html ROS as noted in the HPI Aleyda is here to discuss symptoms she's [...] in that area under the skin. MAGALIS OWENS NP [address] [place] [address], [phone], [facility] 04/30/2024 16:11:35 OBGyn Episode Ob Episode Information Episode Created Date Number of Fetuses Patient Bloodtype Patient rh Status Prepregnancy Weight lbs Domestic Partner Domestic Partner Phone Father Name Abalone Processor Status 06/09/20 21 1 CLOSED Fetus Data First Name Last Name Admitted to NICU Weight (g) Sex Living Outcome Pediatric Complications Fetus ID Race Codes Race Delivery Type 4082.32 8 M Full Term [id number] Miguel Calculation Initial Miguel Date Initial Exam [...] Domestic Partner Domestic Partner Phone Father Name Abalone Processor Status 06/09/20 21 1 CLOSED Fetus Data First Name Last Name Admitted to NICU Weight (g) Sex Living Outcome Pediatric Complications Fetus ID Race Codes Race Delivery Type 3628.73 6 M Full Term [id number] Miguel Calculation Initial Miguel Date Initial Exam [...]
--- OUTSIDE RECORDS SUMMARY | 2025-06-18 00:18 | XMS_ITS | Encounter Summary ---
Author Organization [facility] Address [address] [place] [address] Care Team Providers Care Tinner Helper Name Role Phone Yane Muñiz MD Primary Care Provider [phone] Encounter Details Date Type Department Care Team (Late st Contact Info) Description 02/02/2025 MyChart Message Enc [facility] Family & Internal Medicine [address] [address] [place] [id number] [address] Question about medication Social History Tobacco Use Types Packs/Day Years Used Date Smoking Tobacco: Never Smokeless Tobacco: Never Alcohol Use Standard Drinks/Week Comments Not Currently 3.3 (1 standard drink = 0.6 oz p ure alcohol) Social PHQ-2 Answer Date Recorded Patient Health Questionnaire-2 Score 0 12/15/2024 Comments No Sex and Gender Information Value Date Recorded Sex Assigned at Female 10/22/2024 4:02 PM CDT Legal Sex Female 4:57 PM CDT Gender Identity Female 10/22/2024 4:02 PM CDT Sexual Orientation Not on file documented as of this encounter Plan of Treatment Upcoming Encounters Date Type Department Care Team (Late st Contact Info) Description 07/12/2025 8:40 AM EMBEDDED SOFTWARE ENGINEER Office Visit [facility] Multispecialty Care - [address], [address] [place] [address] Iain Velasquez, DO [address] [facility] [address] [place] [address] 12/13/2025 7:00 AM CDT Office Visit [facility] Family [facility] Internal Medicine [facility] [address] [place] [address] Yane Muñ[place] [address] [facility]. [address] [place] [address] documented as of this encounter Visit Diagnoses Not on filedocumented in this encounter Additional Health Concerns Assessment Noted Time PHQ-9 Depression Total Score: 2 12/16/19 25 1:23 PM CDT documented as of this encounter Care Teams Tinner Helper Relationship Specialty Start Date End Date Yane Muñiz [place] [address] [facility] [address] [place] [address] PCP - General FAMILY PRACTICE 04/19/22 documented as of this encounter
--- OUTSIDE RECORDS SUMMARY | 2025-06-18 00:18 | XMS_ITS | Encounter Summary ---
Author Organization [facility] Address [address] [place] [address] Care Team Providers Care E Marketing Specialist Name Role Phone Yane Muñiz MD Primary Care Provider [phone] Encounter Details Date Type Department Care Team (Latest Contact Info) Description 01/03/2023 Mapluckt Message Enc [facility] Family & Internal Medicine [address] [address] Yane Muñiz [place] [id number] [place] [address] [address] [place] [address] Question regarding POLYSOMNOGRAPHY 4 OR MORE [...] st Contact Info) Description 07/12/2025 8:40 AM BOX COVERER HAND Office Visit [facility] Multispecialty Care - [address], [address] [place] [address] Iain Velasquez, DO [address] [facility] [address] [place] [address] 12/13/2025 7:00 AM CDT Office Visit [facility] Family & Internal Medicine - [place] [address] [place] [address] Yane Muñiz [place] [address] [facility] [address] [place] [address] documented as of this encounter Visit Diagnoses Not on filedocumented in this encounter Additional Health Concerns Assessment Noted Time PHQ-9 Depression Total Score: 14 023 9:12 AM BOX COVERER HAND documented as of this encounter Care Teams E Marketing Specialist Relationship Specialty Start Date End Date Yane Muñiz [place] [address] [facility] [place] [address] PCP - General FAMILY PRACTICE 04/19/22 documented as of this encounter
--- OUTSIDE RECORDS SUMMARY | 2025-06-18 00:18 | XMS_ITS | Patient Health Record ---
Author Organization [facility] Address [address] [place] [address] Phone [phone] Care Team Providers Care Inker Machine Name Role Phone Praneeth Dickerson Primary Care Provider [phone] Allergies No Known Allergies Reason For Referral No Information Medications Medication SIG (Take, Route, Frequency, Duration) Notes Start Date End Date Diagnosis (ICD Code) Status Ferrous Sulfate 325 (65 Fe) MG Tablet 1 tablet Orally Once a day Active buPROPion HCl ER (XL) 150 MG Tablet Extended Release 24 Hour 1 tablet in the morning Orally Once a day; Duration: 30 days Major depression (ICD_10 - F32.9) Not-Taking Social History Tobacco Use: Social History Observation Description Date Details (start date - stop date) Never Smoker NA - NA Sex Observation Social History Observation Description Sex Observation Female Social History Primary Social History Social Info Question Answer Notes Living Arrangement Living Arrangement: Independent Patricia ing Is this a supportive environment? Yes Employment Status Employment Status: Unemployed Illicit Substance Usage Illicit Substance Usage: No Alcohol Use Alcohol Use Frequency: Never Tobacco Use: Social Info Question Answer Notes Dont use, Tobacco Use/Smoking Are you a nonsmoker Problems Problem Type SNOMED Code ICD Code Dates Problem Status W/U Status Risk Notes Problem Generalized anxiety disorder (43057729) Generalized anxiety disorder (F41.1) Added On:2022 Active confirmed Problem Major depression (843225346) Major depression (F32.9) Added On:2022 Active confirmed Plan Of Treatment No Information Insurance Providers Payer Name Payer Address Payer Phone Subscriber Number Group Number Insured Name Patient Relationship to Insured Coverage Start Date Coverage End Date [employer] [address] [place] [address] [id number] Aleyda Gonzales Self - patient is the insured 9 [employer] [address] [place] [address] [id number] Aleyda Gonzales Self - patient is the insured 9 Medical (General) History Hospitalization History Reason Date(Month/Year) 2 child
--- OUTSIDE RECORDS SUMMARY | 2025-06-18 00:18 | XMS_ITS | Encounter Summary ---
Author Organization [facility] Address [address] [place] [address] Care Team Providers Care Post Office Clerk Name Role Phone Yane Muñiz MD Primary Care Provider [phone] Encounter Details Date Type Department Care Team (Late Contact Info) Description 02/11/2024 Therapy Plan [facility] Physical Therapy [address] [place] [address] Tiny Rahman, [place] [address] Social History Tobacco Use Types Packs/Day Years [...] Encounters Date Type Department Care Team (Late Contact Info) Description 07/12/2025 8:40 AM ASSEMBLY RIVETER Office Visit [facility] Mult[facility] Care - [facility] [address] [facility] [place] [address] Iain Velasquez, DO [address] [facility] [address] [place] [address] 12/13/2025 7:00 AM CDT Office Visit [facility] Family & Internal Medicine - [place] [address] [place] [address] Yane Muñiz [place] [address] [facility] [address] [place] [address] documented as of this encounter Visit Diagnoses Not on filedocumented in this encounter Additional Health Concerns Assessment Noted Time PHQ-9 Depression Total Score: 14 023 9:12 AM ASSEMBLY RIVETER documented as of this encounter Care Teams Post Office Clerk Relationship Specialty Start Date End Date Yane Muñiz [place] [address] [place] [address] PCP - General FAMILY PRACTICE 04/19/22 documented as of this encounter
--- NOTE | 2025-06-18 06:43 | WPDHPUPDATE1 ---
History and Physical Update Update Date/Time: 06/18/25 06:43 History and Physical has been reviewed, including an updated exam of the patient. There are NO changes in the patient's condition. Risks, benefits, and alternatives have been discussed and questions answered. Patient agrees to proceed with procedure.
[2025-06-18 08:05] VITALS: BP 103/58; PULSE 65; RESP 18; TEMP 36.5; O2SAT 100
[2025-06-18] MEDS: ACETAMINOPHEN 500 MG TABLET 1000 MG PO (08:21)
[2025-06-18] MEDS: LACTATED RINGERS 1,000 ML 30 ML IV CONT (08:25)
--- NOTE | 2025-06-18 09:58 | P.PNAN_ITS ---
Anes - Initial Pre Proc Eval Procedure: Operation Date: 06/18/25 10:15 Proposed Procedures p Hysteroscopy Dilation and Curettage - Jc Link MD Date/Time: 06/18/25 09:58 Surgeon: cJ Link MD Pre Op Diagnosis: irregular bleeding Patient Data Age: 30 Gender: F Height: 1.65 m Weight: 70.2 kg Last Vital Signs Temp 36.5 C 06/18/25 08:05 Pulse 65 06/18/25 08:05 Resp 18 06/18/25 08:05 BP 103/58 L 06/18/25 08:05 Pulse Ox 100 06/18/25 08:05 O2 Del Method Room Air 06/18/25 08:05 Allergies Allergy/AdvReac Type Severity Reaction Status Date / Time No Known Allergies Allergy Verified 06/18/25 08:44 Home Medications ?Medication ?Instructions ?Recorded ?Confirmed ?Type sertraline 100 mg tablet 100 mg PO DAILY 06/10/25 History valacyclovir 1 gram tablet 1,000 mg PO DAILY PRN VIRUS 06/10/25 06/18/25 History hydrocodone 5 mg-acetaminophen 325 1 tablet PO Q4H PRN pain #14 tabs 06/18/25 Rx mg tablet Patient hx anesthesia problems: none Family hx anesthesia problems: none Results Review: All pre-operative results and documents have been reviewed as part of the pre- operative evaluation. [facility] Past Medical History Medical History Anxiety Family History Family History Mother High cholesterol Social History Social History Smoking status: Never smoker Second hand tobacco smoke exposure: No Alcohol intake: current Alcohol use details: less than one a month Substance use: never Substance use type: does not use Living arrangements: with family Gender identity (if verbalized by the patient): Female Spiritual care concerns: No Anes - Eval Final PreProcedure Day of Procedure 06/18/25 09:58 Patient weight: overweight Heart: regular rate and rhythm Lungs: clear to auscultation Airway: Mallampati scale class II Neurological: alert and oriented Last oral intake: >/= 8 hours ASA classification: II Emergent: no Anesthetic plan: proceed Anesthesia type and monitoring: general GIVS and standard monitoring Results Review: All pre-operative results and documents have been reviewed as part of the pre- operative evaluation. Informed Consent: The patient's anesthetic plan and its attendant risks and benefits were discussed with the patient/family/POA. Questions were solicited and answers provided to the satisfaction of the patient/family/POA.
[2025-06-18 10:12] LABS: BEDSIDEPREGUCG Negative (Negative)
--- NOTE | 2025-06-18 10:25 | S_PTH ---
PATIENT: Aleyda Gonzales I LOC: [facility] U#:[id number] AGE/SX: 30/F ROOM: RE06/18/[address]: Jc Link MD : 1995 BED: DIS: 06/18/2025 SPEC #: [id number] RECD: 06/18/25 11:33 STATUS: SONJA REJuany #: [id number] CHING: 06/18/25 10:[address]: Jc Amin DEPT: [facility] Surgical RECD BY: Cecily Hansen ENTERED: 06/18/25 11:34 SP TYPE: Surgical OTHR DR: Yane MuñizMD Tissues: A - Endometrial Curettings Procedures: Hematoxylin and Eosin Stain Gross and Microscopic Level 4
[2025-06-18 10:30] VITALS: BP 103/70; PULSE 63; RESP 16; O2SAT 97
--- NOTE | 2025-06-18 10:36 | W.PM.PROC2 ---
Procedure Note - Detailed Date of Procedure 06/18/25 Pre-op Diagnosis irregular bleeding Post-op Diagnosis Same Procedure Performed Hysteroscopy/dilatation curettage Surgeon Jc Link MD Anesthesia MAC and Local Indications 30-year-old female with irregular bleeding refractory to medical therapy Findings The uterus was scarred on the inside consistent with previous ablation. Description of Procedure Patient was prepped draped in normal sterile fashion placed dorsal lithotomy position. Under excellent IV sedation weighted speculum placed in posterior fornix vagina. Anterior lip of the cervix grasped with a single-tooth tenaculum. 2.5cc were placed at 2, 4, 8, 10:00 a.m. of the cervix. Uterus sounded to 6cm. Serial dilatation with fragmented dilators performed followed by passage of the 5mm visualizing hysteroscope. The uterus was scarred there was no evidence of thickened endometrium raising abnormality. The uterus was scraped the instruments withdrawn the patient went recovery in satisfactory condition. All sponge, needle, instrument counts were correct. There were no immediate complications Estimated Blood Loss 5 Drains No Packing No Pathology Yes Complications No immediate complications Condition Stable Disposition PACU
[2025-06-18 11:00] VITALS: BP 99/58; PULSE 58; RESP 16; O2SAT 99
[2025-06-18 11:30] VITALS: BP 110/71; PULSE 658; RESP 14
[2025-06-18 11:45] VITALS: BP 98/70; PULSE 65; RESP 14
== END 2025-06-18 11:54 | disposition home or self-care (01) ==
PROVIDERS: PCP Family Medicine; Visit Provider Obstetrics & Gynecology
PROC: 0U5B8ZZ Destruction of Endometrium, Via Natural or Artificial Opening Endoscopic (ICD-10-PCS; CPT 58563; principal; 2025-06-18 10:15)
DX: N92.1 Excessive and frequent menstruation with irregular cycle (principal); N93.0 Postcoital and contact bleeding
CPT/HCPCS: 58558; 88305; A9270; J2003; J2250; J2704; J3010; J7120